=== PATIENT | female | born 1965 | race Two or more races ===

== ENCOUNTER 2025-05-17 11:54 | Inpatient (IN) | payer OTHER ==
[~2025-05-17] VITALS: Ht 165.1 cm; Wt 132.6 kg
--- NOTE | 2025-05-17 12:31 | ED.PDOC ---
Musculoskeletal HPI Comments HPI: 59 year old female presents to the emergency department with a chief complaint of RT leg pain onset 1 week. Patient states she was walking, hit RT leg on a metal pole, since then has been experiencing bruising and pain to RT leg. For the past few days, patient noticed slight improvement of bruising, erythema and swelling is worsening. RT leg is tender to touch, warm to touch, has a abrasion from impact. Denies head injury, LOC, nausea, vomiting, diarrhea, chest pain, shortness of breath, dizziness, headache, numbness/tingling. No other symptoms or modifying factors present at this time. Initial Vitals BP: 174/82 HR: 79 RR: 18 O2 Sat: 98% Temp: 98.1 F Past Medical history: thyroid disease, HTN Past Surgical history: Denies Medications: Denies Social History: Denies smoking, ETOH, and drug use. Allergies: NKDA heavenly: RLE pain swelling red. injury HPI: Poor Historian. REVIEW OF SYSTEMS: CONSTITUTIONAL: Denies acute: fever, diaphoresis, chills, generalized weakness. HEAD: Denies acute: headache, photophobia Eyes: Denies acute: Double vision, vision loss, eye pain, eye discharge. EARS: Denies acute: tinnitus, hearing loss, ear discharge, ear pain, THROAT: Denies acute: sore throat, swelling, difficulty swallowing , pain with swallowing, change in voice. NECK: Denies acute: neck pain, neck swelling, stiff neck. HEART: Denies acute : chest pain, palpitations, LUNGS: Denies acute: SOB, wheezing, cough, hemoptysis ABDOMEN: Denies acute: abdominal pain, Nausea, Vomiting, diarrhea, melena , hematemesis, hematochezia SKIN: Denies acute: itchiness. EXTREMITIES: Denies acute: calf pain, numbness, tingling, weakness, Denies acute: Low back pain. Neuro: Denies acute: focal neurological deficit, motor or sensory focal neurological deficit, tremors, seizure like activity, confusion, dizziness, change in mental status, loss of bowel or bladder function, cauda equina like symptoms. : Denies acute: dysuria, hematuria, flank pain, increase in urinary frequency. PSYCH: Denies acute: hallucination, suicidal ideation, homicidal ideation. FEMALE: Denies acute: abnormal vaginal bleeding, foul odor, unusual discharge. PHYSICAL EXAM: General: -----moderate---acute distress, awake and alert. Head: normocephalic, atraumatic. Neck: supple, trachea is midline, no swelling. Throat: Normal phonation. Eyes:, no erythema, no purulent discharge, no proptosis, no icterus. Heart: regular rate, regular rhythm, no significant murmur appreciated. Lungs: no apparent respiratory distress, Able to speak in full sentences. No wheezing, no rhonchi, no crackles. No stridors Clear to auscultation bilaterally. Abdomen: non tender to palpation, non distended, soft, no guarding, no rebound, + bowel sounds. Obese Neuro: Awake, Alert, oriented to name, self, situation, follows commands GCS=15. Speech is normal. Skin: no petechia, no purpura, no cyanosis, non-pale, not jaundice. Evaluation of the right lower extremity the affected area of complaint: Noted right anterior fountain erythema and tenderness to palpation with edema as w ell. Noted central official wound from the injury. Patient is neurovascularly intact in the affected extremity. Pedal pulses palpable. Sensory and motor are present. No calf tenderness to palpation. No apparent deformity. Makes eye contact. moves all four extremities. Face: no apparent facial droop. Ambulating in the ED independently. Pedal pulses are palpable. ED COURSE: DISCLAIMER: This medical document was created using an electronic medical record system with voice recognition software and computerized dictation system. Although this document has been carefully reviewed, there might still be some phonetic and typographical errors. Occasional wrong-word or "sound-alike" substitutions may have occurred due to the inherent limitations of voice recognition software. These areas are purely typographical due to imperfections of the software programs and do not reflect any compromise in the patient's medical care. Please read the chart carefully and recognize, using context, where these substitutions have occurred. Chief Complaint: Lower Extremity Time Seen by MD: 12:20 Reviewed Notes: Medications, Allergies Allergies: Coded Allergies: Vancomycin (Verified Allergy, Intermediate, 05/20/25) Urticaria, hives, erythema Home Meds Reported Medications Levothyroxine Sodium (Levothyroxine Sodium) 125 Mcg Tab, 1 TAB PO DAILY 05/17/25 Information Source: Patient Mode of Arrival: Ambulatory Location: Right Extremity Location: Leg Timing: Weeks Prehospital treatment: None Severity: Moderate Able to Move Extremity: Yes Bear Weight: Limited Pain: Moderate Mechanism: Blunt Trauma Circumstances: Spontaneous Onset of Symptoms: After Trauma Symptoms: Swelling, Pain, Erythema, Warmth DVT Risk Factors: NONE Associated signs and symptoms: Swelling, Leg pain Past Medical History PAST MEDICAL HISTORY: HTN, Thyroid Surgical History: Denies all surgeries 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 Was a procedure done?: No Differential Diagnosis EXT Differential Diagnosis: Cellulitis, CHF, Deep Vein Thrombosis, Compartment Syndrome, Fracture, Sprain, Dislocation, Laceration, Gout, DJD, Myocardial Infarction, Contusion, Strain, Rheumatoid, Septic, Neurovascular injury, Arthritis, Other (Leg swellingDdx include but not limited to DVT, ischemic limb, pitting edema, volume overload, CHF, cellulitis, hematoma, compartment syndrome, dependent edema, venous stasis.) X-Ray, Labs, Meds, VS Vital Signs Date Time Temp Pulse Resp B/P (MAP) Pulse Ox O2 Delivery O2 Flow Rate FiO2 05/17/25 14:24 98.2 66 16 156/94 (114) 99 98.2 05/17/25 12:00 98.1 79 18 174/82 98 98.1 Lab Test 05/17/25 13:07 Range/Units White Blood Count 6.9 4.4-10.8 10^3/uL Red Blood Count 4.62 4.0-5.20 10^6/uL Hemoglobin 14.5 12.2-16.2 g/dL Hematocrit 41.3 36.0-46.0 % Mean Corpuscular Volume 89.4 80.0-100.0 fL Mean Corpuscular Hemoglobin 31.3 28.0-32.0 pg Mean Corpuscular Hemoglobin Concent 35.0 32.0-36.0 g/dL Red Cell Distribution Width 15.1 H 11.8-14.3 % Platelet Count 168 140-450 10^3/uL Mean Platelet Volume 8.3 6.9-10.8 fL Neutrophils (%) (Auto) 58.0 37.0-80.0 % Lymphocytes (%) (Auto) 26.7 10.0-50.0 % Monocytes (%) (Auto) 10.9 0.0-12.0 % Eosinophils (%) (Auto) 3.4 0.0-7.0 % Basophils (%) (Auto) 1.0 0.0-2.0 % Neutrophils # (Auto) 4.0 1.6-8.6 10 ^3/uL Lymphocytes # (Auto) 1.8 0.4-5.4 10 ^3/uL Monocytes # (Auto) 0.8 0-1.3 10 ^3/uL Eosinophils # (Auto) 0.2 0-0.8 10 ^3/uL Basophils # (Auto) 0.1 0-0.2 10 ^3/uL Nucleated Red Blood Cells 0.1 % Erythrocyte Sedimentation Rate 19 0-20 mm/hr Sodium Level 142 136-145 mmol/L Potassium Level 3.9 3.5-5.1 mmol/L Chloride Level 107 98-107 mmol/L Carbon Dioxide Level 24 20-31 mmol/L Anion Gap 11 5-15 Blood Urea Nitrogen 12 9-23 mg/dL Creatinine 0.68 0.550-1.02 mg/dL Glomerular Filtration Rate Calc 100 >90 mL/min BUN/Creatinine Ratio 17.6 10.0-20.0 Serum Glucose 102 74-106 mg/dL Lactic Acid Level 1.1 0.4-2.0 mmol/L Calcium Level 8.9 8.7-10.4 mg/dL Total Bilirubin 1.3 H 0.2-1.0 mg/dL Aspartate Amino Transferase (AST) 48 H 13-40 U/L Alanine Aminotransferase (ALT) 43 H 7-40 U/L Alkaline Phosphatase 85 46-116 U/L C-Reactive Protein High Sensitivity 1.06 H <1.0 mg/dL B-Type Natriuretic Peptide 37.57 0-100 pg/mL Total Protein 7.0 5.7-8.2 g/dL Albumin 4.0 3.2-4.8 g/dL [place] [id number] Ph: [phone] DIAGNOSTIC IMAGING Diagnostic Imaging Report : [id number] Signed PATIENT: TIMI GRAVEST: [id number] UNIT: [id number] : 1965 LOC: ER ROOM / BED: / AGE / SEX: 59 / F ADM STATUS: REG ER SERVICE [id number] ORDERING PHYSICIAN: XENA NEWMAN DO PROCEDURE(s): RLDVT - RT Lower DVT REASON: pain swelling ORDER NUMBER(s): [id number], ACCESSION NUMBER(s): [id number] Clinical History: pain swelling Comparison: None Technique: Duplex Doppler evaluation of the deep venous system of the right lower extremity from the common femoral vein to the popliteal vein including color Doppler and spectral/pulsed waveform analysis was performed. Findings: The common femoral vein demonstrates appropriate compressibility and waveform variability. There is compressibility/patency of the great saphenous vein at the proximal thigh. The femoral vein demonstrates appropriate compressibility and waveform variability. The deep femoral vein demonstrates appropriate compressibility and waveform variability. The popliteal vein demonstrates appropriate compressibility and waveform variability. There is normal compressibility at the tibioperoneal trunk. Complex fluid collection in the soft tissues of the right lower extremity calf measuring 6.0 x 1.6 x 4.8 cm. Impression: No rightdeep venous thrombosis. Complex fluid collection in the soft tissues of the right lower extremity calf measuring 6.0 x 1.6 x 4.8 cm. ATED BY: MUSHTAQ SAM MD DICTATED DATE/TIME: 05/17/251405 SIGNED BY: MUSHTAQ SAM MD SIGNED DATE/TIME: 05/17/251405 CC: [address] [id number] Ph: [phone] DIAGNOSTIC IMAGING Diagnostic Imaging Report : [id number] Signed PATIENT: TIMI GRAVEST: [id number] UNIT: [id number] : 1965 LOC: ER ROOM / BED: / AGE / SEX: 59 / F ADM STATUS: REG ER SERVICE [id number] ORDERING PHYSICIAN: XENA NEWMAN DO PROCEDURE(s): RTLEXW - RT LOWER EXTREMITY W CON REASON: PAIN SWELLING ORDER NUMBER(s): [id number], ACCESSION NUMBER(s): [id number] EXAM: CT RT LOWER EXTREMITY W CON INDICATION: PAIN SWELLING EXAM DATE: 05/17/2025 04:10 PM COMPARISON: None TECHNIQUE: Multiple axial CT images of the right distal lower extremity were obtained using bone algorithm. Axial and coronal reformatting was done. Bone and soft tissue windows were reviewed. IV contrast was administered. Radiation Dose Information: CT Dose: CTDI volume is 7.75 mGy. Dose-length product is 436.71 mGy*cm Findings/Impression: There is no evidence of an acute fracture, dislocation, blastic, or lytic lesions. No radiopaque foreign bodies. Ill-defined anteromedial subcutaneous enhancing fluid collection at the level of the mid-tibia, which measures approximately 10.6 x 7.8 x 1.8 cm. May reflect of phlegmon versus developing abscess. Contrast-enhanced MRI May prove useful for further evaluation. Mild diffuse soft tissue edema. ATED BY: ADRIENNE LEW DO DICTATED DATE/TIME: 05/17/251703 SIGNED BY: ADRIENNE LEW DO SIGNED DATE/TIME: 05/17/251703 CC: Time of 1ST Reevaluation: 12:50 Reevaluation 1ST: Unchanged Patient Education/Counseling: Diagnosis, Treatment Family Education/Counseling: No Family Present Comments MDM: patient presented with the above HPI.---leg pain/injury---workup was init iated. patient was found with the above mentioned diagnosis. the following medications were ordered: please refer to order lists of meds and tests obtained by myself Dr. Newman. Patient ED course and VS have been stabilized. Patient has been reassessed in the ED and remained in a stable condition. Pertinent incidental findings were discussed with the patient and/or family. Patient/family voices understanding and is agreeable with plan. Patient has been observed in the ED adequate length of time to insure improvement/stability. Escalation of care considered: Consideration of escalation to observation or admission Patient was ADMITTED to the medicine team for further evaluation and treatment of their presentation. All the reports of any imaging studies that were ordered by myself were reviewed by myself. Departure 1 Departure Time of Disposition: 17:20 Impression: Primary Impression: Cellulitis of leg, right Additional Impression: Hematoma Disposition: ADMITTED INPATIENT Admit to: Tele Condition: Guarded Discharged With: Self Critical Care Note Critical Care Time?: No I personally scribed for XENA NEWMAN DO ([email or web address]) on 05/17/25 at 12:31. Electronically submitted by Virginia Morin ([email or web address]). I personally scribed for XENA NEWMAN DO ([email or web address]) on 05/17/25 at 14:37. Electronically submitted by Virginia Morin ([email or web address]). I personally scribed for XENA NEWMAN DO ([email or web address]) on 05/17/25 at 17:09. Electronically submitted by Virginia Morin ([email or web address]). XENA NEWMAN DO May 17, 2025 12:31
[2025-05-17 13:23] LABS: Hematocrit 41.3 % (36.0-46.0); Hemoglobin 14.5 g/dL (12.2-16.2); Mean Corpuscular Hemoglobin 31.3 pg (28.0-32.0); Mean Corpuscular Volume 89.4 fL (80.0-100.0); Nucleated Red Blood Cells % 0.1 %
[2025-05-17 13:35] LABS: Albumin 4.0 g/dL (3.2-4.8); Alkaline Phosphatase 85 U/L (46-116); Anion Gap 11 (5-15); BUN/Creatinine Ratio 17.6 (10.0-20.0); Blood Urea Nitrogen 12 mg/dL (9-23); Calcium 8.9 mg/dL (8.7-10.4); Carbon Dioxide 24 mmol/L (20-31); Chloride 107 mmol/L (98-107); Glucose 102 mg/dL (74-106); Potassium 3.9 mmol/L (3.5-5.1); Sodium 142 mmol/L (136-145); Total Protein 7.0 g/dL (5.7-8.2)
[2025-05-17 13:38] LABS: Alanine Aminotransferase 43 U/L (7-40); Bilirubin, Total 1.3 mg/dL (0.2-1.0)
--- NOTE | 2025-05-17 14:08 | DVH ---
Clinical History: pain swelling Comparison: None Technique: Duplex Doppler evaluation of the deep venous system of the right lower extremity from the common femo ral vein to the popliteal vein including color Doppler and spectral/pulsed waveform analysis was perf ormed. Findings: The common femoral vein demonstrates appropriate compressibility and waveform variability. There is compressibility/patency of the great saphenous vein at the proximal thigh. The femoral vein demonstrates appropriate compressibility and waveform variability. The deep femoral vein demonstrates appropriate compressibility and waveform variability. The popliteal vein demonstrates appropriate compressibility and waveform variability. There is normal compressibility at the tibioperoneal trunk. Complex fluid collection in the soft tissues of the right lower extremity calf measuring 6.0 x 1.6 x 4.8 cm. Impression: No rightdeep venous thrombosis. Complex fluid collection in the soft tissues of the right lower extremity calf measuring 6.0 x 1.6 x 4.8 cm.
[2025-05-17] MEDS: IOHEXOL 300 MG/ML 100ML BOTTLE IJ ONE (16:23)
--- NOTE | 2025-05-17 17:06 | DVH ---
EXAM: CT RT LOWER EXTREMITY W CON INDICATION: PAIN SWELLING EXAM DATE: 05/17/2025 04:10 PM COMPARISON: None TECHNIQUE: Multiple axial CT images of the right distal lower extremity were obtained using bone [employer]. Axial and coronal reformatting was done. Bone and soft tissue windows were reviewed. IV contrast was administered. Radiation Dose Information: CT Dose: CTDI volume is 7.75 mGy. Dose-length product is 436.71 mGy*cm Findings/Impression: There is no evidence of an acute fracture, dislocation, blastic, or lytic lesions. No radiopaque foreign bodies. Ill-defined anteromedial subcutaneous enhancing fluid collection at the level of the mid-tibia, which measures approximately 10.6 x 7.8 x 1.8 cm. May reflect of phlegmon versus developing abscess. Contr ast-enhanced MRI May prove useful for further evaluation. Mild diffuse soft tissue edema.
[2025-05-17] MEDS ORDERED: LEVO125T7 PO (19:25)
--- NOTE | 2025-05-17 19:25 | DVHHP2 ---
Admitting Diagnosis: Right leg pain History of Present Illness 59 y/o female patient with history of hypertension presents with right leg pain. Patient states she hit her leg on a sign post. Patient also complains of bruising, redness, and swelling to the leg. While in the emergency department the patient was evaluated by the provider, As per provider: Labs, vital signs, and imagining monitored. Patient will be admitted for further evaluation and treatment. I discussed admission with the patient/family and is in agreement to treatment plan. Allergies: Coded Allergies: NO KNOWN ALLERGIES (Unverified , 05/17/25) Home Meds Reported Medications Levothyroxine Sodium (Levothyroxine Sodium) 125 Mcg Tab, 1 TAB PO DAILY 05/17/25 Current Medications Current Medications Medications (Trade) Dose Ordered Sig/Roseanna Route PRN Reason Start Time Stop Time Status Last Admin Enoxaparin Sodium (Lovenox) 40 mg DAILY SC 05/18/25 10:00 05/18/25 09:43 Piperacillin Sod/ Tazobactam Sod 100 ml @ 25 mls/hr Q8HR IV 05/18/25 06:00 05/18/25 15:58 Hydralazine HCl (Apresoline Injection) 10 mg Q6HP PRN IV SBP>150 05/18/25 13:15 Review of Systems Constitutional: denies chills, denies fever, denies malaise Eyes: denies eye pain, denies vision change ENT: denies ear pain, denies headache, denies nasal congestion, denies painful swallowing, denies voice change Cardiovascular: denies chest pain, denies edema, denies orthopnea, denies palpitations, denies paroxysmal nocturnal dyspnea Respiratory: denies cough, denies shortness of breath Gastrointestinal: denies constipation, denies diarrhea, denies nausea, denies vomiting Genitourinary: denies dysuria, denies frequent urination, denies urethral discharge Musculoskeletal: denies back pain, denies joint pain, denies muscle pain Skin: denies bruising, denies itching, denies rash Neurological: denies focal weakness, denies headache, denies sensory changes Psychiatric: denies anxiety, denies depression Endocrine: denies polydipsia, denies polyuria Hematologic/Lymphatic: denies easy bleeding, denies easy bruising, denies enlarged lymph nodes Allergic/Immunologic: denies allergy, denies hives Vital Signs Vital Signs Date Time Temp Pulse Resp B/P (MAP) Pulse Ox O2 Delivery O2 Flow Rate FiO2 05/18/25 17:01 98.1 68 17 151/86 (107) 95 98.1 05/18/25 08:00 Room Air* 0 21 Physical Exam General Appearance: alert, no distress HEENT: EOMI, PERRLA, normal external inspect of ears, no icterus, no nasal drainage Neck: no carotid bruit, no jugular venous distention (JVD), no lymphadenopathy Chest: normal thorax Respiratory: clear to auscultation, normal air movement Cardiovascular: regular rate and rhythm, no diastolic murmur, no jugular venous distention (JVD), no rub, no systolic murmur Abdominal: soft, no hepatomegaly, no mass, no splenomegaly, no tenderness Genitourinary: grossly normal external Musculoskeletal: no joint tenderness, no swelling Extremities: normal pulses, no calf tenderness, no clubbing, no cyanosis, no edema Skin: no bruising, no jaundice, no rash Neurological: alert, No focal deficit SEPSIS Sepsis Screen Date sepsis recognized/suspect: May 17, 2025 Time Sepsis recognized/suspect: 1203 Recent Procedure: No On Antibiotic Therapy: No Respiratory Rate >20: No Heart Rate >90: No Temp<36 C (96.8 F) or >38.3 C: No SBP <90 or MAP <65 mmHG: No New Acute Mental Status Change: No Is the patient on CPAP, BIPAP,: No Physician Orders Rt Lower Dvt (05/17/25 12:22) Rt Lower Extremity W Con (05/17/25 14:59) Admit (05/17/25 19:22) Code Status (05/17/25 19:22) Hydrocodone-Acet 5/325mg Tab ([place] 5/32 (05/17/25 19:30) Temazepam (Restoril) (05/17/25 19:30) Ondansetron Hcl (Zofran) (05/17/25 19:30) Docusate Sodium Capsule (Colace Capsule) (05/17/25 19:30) Enoxaparin Sodium (Lovenox) (05/18/25 10:00) Cardiac Diet-2gna,Lofat,Lochol (05/18/25 Breakfast) Acetaminophen Tablet (Tylenol Tablet) (05/17/25 19:30) Piperacillin-Tazob 3.375gm (Zosyn 3.375g (05/18/25 06:00) * Radiologist Consult (05/18/25 13:09) Hydralazine Injection (Apresoline Inject (05/18/25 13:15) Vital Signs Date Time Temp Pulse Resp B/P (MAP) Pulse Ox O2 Delivery O2 Flow Rate FiO2 05/18/25 17:01 98.1 68 17 151/86 (107) 95 98.1 05/18/25 12:52 97.9 63 17 145/90 (108) 97 97.9 05/18/25 08:40 98.1 64 17 135/83 (100) 96 98.1 05/18/25 08:00 Room Air* 0 21 05/18/25 05:00 97.7 70 18 122/70 (87) 98 97.7 05/18/25 01:00 98.2 61 18 125/73 (90) 98 98.2 05/17/25 23:14 Room Air* 0 21 05/17/25 21:11 97.6 74 18 127/76 (93) 96 97.6 05/17/25 21:07 99 Room Air* 0 21 05/17/25 19:29 98.2 66 14 159/73 (101) 95 98.2 05/17/25 14:24 98.2 66 16 156/94 (114) 99 98.2 05/17/25 12:00 98.1 79 18 174/82 98 98.1 Laboratory Tests Test 05/17/25 13:07 05/18/25 04:17 Lactic Acid Level 1.1 mmol/L (0.4-2.0) White Blood Count 6.9 10^3/uL (4.4-10.8) 6.2 10^3/uL (4.4-10.8) Medications Medications Dose Ordered Sig/Roseanna Route Start Time Stop Time Status Last Admin Dose Admin Enoxaparin Sodium 40 mg DAILY SC 05/18/25 10:00 05/18/25 09:43 40 MG Results Labs Test 05/18/25 13:40 05/18/25 04:17 05/17/25 13:07 Range/Units Prothrombin Time 12.8 H 9.3-11.8 sec Prothrombin Time INR 1.23 H 0.9-1.15 Activated Partial Thromboplast Time 29.3 24.5-34.5 SEC White Blood Count 6.2 4.4-10.8 10^3/uL Red Blood Count 4.25 4.0-5.20 10^6/uL Hemoglobin 13.2 12.2-16.2 g/dL Hematocrit 38.5 36.0-46.0 % Mean Corpuscular Volume 90.6 80.0-100.0 fL Mean Corpuscular Hemoglobin 31.2 28.0-32.0 pg Mean Corpuscular Hemoglobin Concent 34.4 32.0-36.0 g/dL Red Cell Distribution Width 14.7 H 11.8-14.3 % Platelet Count 154 140-450 10^3/uL Mean Platelet Volume 8.6 6.9-10.8 fL Neutrophils (%) (Auto) 61.1 37.0-80.0 % Lymphocytes (%) (Auto) 24.4 10.0-50.0 % Monocytes (%) (Auto) 10.2 0.0-12.0 % Eosinophils (%) (Auto) 3.8 0.0-7.0 % Basophils (%) (Auto) 0.5 0.0-2.0 % Neutrophils # (Auto) 3.8 1.6-8.6 10 ^3/uL Lymphocytes # (Auto) 1.5 0.4-5.4 10 ^3/uL Monocytes # (Auto) 0.6 0-1.3 10 ^3/uL Eosinophils # (Auto) 0.2 0-0.8 10 ^3/uL Basophils # (Auto) 0 0-0.2 10 ^3/uL Nucleated Red Blood Cells 0.0 % Sodium Level 143 136-145 mmol/L Potassium Level 3.5 3.5-5.1 mmol/L Chloride Level 105 98-107 mmol/L Carbon Dioxide Level 27 20-31 mmol/L Anion Gap 11 5-15 Blood Urea Nitrogen 11 9-23 mg/dL Creatinine 0.71 0.550-1.02 mg/dL Glomerular Filtration Rate Calc 98 >90 mL/min BUN/Creatinine Ratio 15.5 10.0-20.0 Serum Glucose 141 H 74-106 mg/dL Calcium Level 8.6 L 8.7-10.4 mg/dL Total Bilirubin 0.9 0.2-1.0 mg/dL Aspartate Amino Transferase (AST) 42 H 13-40 U/L Alanine Aminotransferase (ALT) 37 7-40 U/L Alkaline Phosphatase 96 46-116 U/L Total Protein 6.7 5.7-8.2 g/dL Albumin 3.7 3.2-4.8 g/dL Erythrocyte Sedimentation Rate 19 0-20 mm/hr Lactic Acid Level 1.1 0.4-2.0 mmol/L C-Reactive Protein High Sensitivity 1.06 H <1.0 mg/dL B-Type Natriuretic Peptide 37.57 0-100 pg/mL Plan 1. Right leg pain Monitor 2. Morbid obesity Monitor 3. Benign essential hypertension Monitor, PRN antihypertensives 4. Hypothyroid Monitor, daily labs 5. Cellulitis right lower extremity Monitor, IV abx, IR consult Plan discussed with: Patient, Other YAAKOV ABEL NP May 17, 2025 19:25
[2025-05-17] MEDS ORDERED: ACETAMINOPHEN 325 MG TAB PO PRN (19:30)
[2025-05-17] MEDS ORDERED: ONDANSETRON HCL 4 MG/2 ML VIAL IV PRN (19:30)
[2025-05-17 21:07] VITALS: O2SAT 99
[2025-05-17 21:11] VITALS: BP 127/76; PULSE 74; RESP 18; TEMP 97.6; O2SAT 96
[2025-05-17] MEDS: PIPERACILLIN-TAZOB 3.375GM 100 ML IV ONE (21:39)
[2025-05-18] VITALS (8 sets, daily range): BP systolic 122–151; BP diastolic 70–90; PULSE 61–70; RESP 17–18; TEMP 97.6–98.2; O2SAT 95–98
[2025-05-18] MEDS: PIPERACILLIN-TAZOB 3.375GM 100 ML IV SCH (05:41)
[2025-05-18 05:53] LABS: Hematocrit 38.5 % (36.0-46.0); Hemoglobin 13.2 g/dL (12.2-16.2); Mean Corpuscular Hemoglobin 31.2 pg (28.0-32.0); Mean Corpuscular Volume 90.6 fL (80.0-100.0); Nucleated Red Blood Cells % 0.0 %
[2025-05-18 06:10] LABS: Alanine Aminotransferase 37 U/L (7-40); Albumin 3.7 g/dL (3.2-4.8); Alkaline Phosphatase 96 U/L (46-116); Anion Gap 11 (5-15); BUN/Creatinine Ratio 15.5 (10.0-20.0); Bilirubin, Total 0.9 mg/dL (0.2-1.0); Blood Urea Nitrogen 11 mg/dL (9-23); Carbon Dioxide 27 mmol/L (20-31); Chloride 105 mmol/L (98-107); Sodium 143 mmol/L (136-145); Total Protein 6.7 g/dL (5.7-8.2)
[2025-05-18 06:23] LABS: Calcium 8.6 mg/dL (8.7-10.4); Glucose 141 mg/dL (74-106); Potassium 3.5 mmol/L (3.5-5.1)
[2025-05-18] MEDS: ENOXAPARIN SOD 40 MG/0.4 ML SYRINGE SC SCH (09:43)
[2025-05-18] MEDS ORDERED: hydrALAZINE HCL 20 MG/ML VL IV PRN (13:15)
[2025-05-18 14:13] LABS: INR 1.23 (0.9-1.15); Partial Thromboplastin Time 29.3 SEC (24.5-34.5); Prothrombin Time 12.8 sec (9.3-11.8)
--- NOTE | 2025-05-18 20:16 | DVHPN2 ---
Progress Note - Dictate Date Seen: May 18, 2025 Medical Necessity Reason Pt with a Central, PICC or Fol: No vital signs Vital Sign Date Time Temp Pulse Resp B/P (MAP) Pulse Ox O2 Delivery O2 Flow Rate FiO2 05/18/25 17:01 98.1 68 17 151/86 (107) 95 98.1 05/18/25 08:00 Room Air* 0 21 Total Intake and Output 05/17/25 05/17/25 05/18/25 15:00 23:00 07:00 Intake Total 100 ml Balance 100 ml medications Current Medications Medications Dose Ordered Sig/Roseanna Route Start Time Stop Time Status Last Admin Dose Admin Acetaminophen/ Hydrocodone Bitart 1 tab Q4HP PRN PO 05/17/25 19:30 Temazepam 15 mg QHSP PRN PO 05/17/25 19:30 Ondansetron HCl 4 mg Q4HP PRN IV 05/17/25 19:30 Docusate Sodium 100 mg BIDPRN PRN PO 05/17/25 19:30 Enoxaparin Sodium 40 mg DAILY SC 05/18/25 10:00 05/18/25 09:43 40 MG Acetaminophen 650 mg Q6HP PRN PO 05/17/25 19:30 Piperacillin Sod/ Tazobactam Sod 100 ml @ 25 mls/hr Q8HR IV 05/18/25 06:00 05/18/25 15:58 25 MLS/HR Hydralazine HCl 10 mg Q6HP PRN IV 05/18/25 13:15 objective General Appearance: alert, no distress HEENT: EOMI, PERRLA, normal external inspect of ears, no icterus, no nasal drainage Neck: no carotid bruit, no jugular venous distention (JVD), no lymphadenopathy Chest: normal thorax Respiratory: clear to auscultation, normal air movement Cardiovascular: regular rate and rhythm, no diastolic murmur, no jugular venous distention (JVD), no rub, no systolic murmur Abdominal: soft, no hepatomegaly, no mass, no splenomegaly, no tenderness Genitourinary: grossly normal external Musculoskeletal: no joint tenderness, no swelling Extremities: normal pulses, no calf tenderness, no clubbing, no cyanosis, no edema Skin: no bruising, no jaundice, no rash Neurological: alert, No focal deficit laboratory and microbiology Laboratory Tests 05/18/25 04:17 Test 05/18/25 04:17 Range/Units Serum Glucose 141 H 74-106 mg/dL Problem List 1. Right leg pain Monitor 2. Morbid obesity Monitor 3. Benign essential hypertension Monitor, PRN antihypertensives 4. Hypothyroid Monitor, daily labs 5. Cellulitis right lower extremity Monitor, IV abx, IR consult Assessment/Plan Subjective: Patient is awake and alert. Objective: Patient was admitted for cellulitis to her right lower extremity. CT imaging shows fluid collection, could be abscess. Patient states that she hit her leg on a sign post. Patient has a history of morbid obesity and essential hypertension and hypothyroidism. Plan: Continue antibiotics for cellulitis. Continue antihypertensives as needed. IR consult for possible fluid drainage. Plan discussed with: Patient, Other YAAKOV ABEL NP May 18, 2025 20:16
[2025-05-18] MEDS: TEMAZEPAM 15 MG CAP PO PRN (21:48)
[2025-05-19] VITALS (7 sets, daily range): BP systolic 109–154; BP diastolic 52–87; PULSE 60–68; RESP 16–18; TEMP 97.2–98.4; O2SAT 92–97
[2025-05-19] MEDS: POTASSIUM CHL 20 Meq TABLET PO ONE (10:46)
[2025-05-19] MEDS: FUROSEMIDE 40 MG/4 ML VIAL IV ONE (10:47)
[2025-05-19] MEDS: HYDROcodone-ACET 5/325MG TAB PO PRN (15:00)
--- NOTE | 2025-05-19 18:13 | DVHPN2 ---
Progress Note Date Seen: May 19, 2025 Medical Necessity Reason Pt with a Central, PICC or Fol: No Subjective Review of Systems: CVS:Normal, RESPIRATORY:Normal, GI:Normal, NEURO:Normal Objective vital signs Vital Sign Date Time Temp Pulse Resp B/P (MAP) Pulse Ox O2 Delivery O2 Flow Rate FiO2 05/19/25 16:50 97.5 68 17 154/87 (109) 92 97.5 05/19/25 07:52 Room Air* 0 21 Total Intake and Output 05/18/25 05/18/25 05/19/25 15:00 23:00 07:00 Intake Total 100 ml 425 ml 920 ml Balance 100 ml 425 ml 920 ml medications Current Medications Medications Dose Ordered Sig/Roseanna Route Start Time Stop Time Status Last Admin Dose Admin Acetaminophen/ Hydrocodone Bitart 1 tab Q4HP PRN PO 05/17/25 19:30 05/19/25 15:00 1 TAB Temazepam 15 mg QHSP PRN PO 05/17/25 19:30 05/18/25 21:48 15 MG Ondansetron HCl 4 mg Q4HP PRN IV 05/17/25 19:30 Docusate Sodium 100 mg BIDPRN PRN PO 05/17/25 19:30 Enoxaparin Sodium 40 mg DAILY SC 05/18/25 10:00 05/19/25 10:05 40 MG Acetaminophen 650 mg Q6HP PRN PO 05/17/25 19:30 Piperacillin Sod/ Tazobactam Sod 100 ml @ 25 mls/hr Q8HR IV 05/18/25 06:00 05/19/25 14:10 25 MLS/HR Hydralazine HCl 10 mg Q6HP PRN IV 05/18/25 13:15 Patient Own Medication 1 tab DAILY PO 05/20/25 10:00 UNV Examination: GENERAL:Normal, NECK:Normal, LUNGS:Normal, CVS:Normal, ABDOMEN:Normal, SKIN:Normal, NEURO:Normal laboratory and microbiology Laboratory Tests 05/18/25 04:17 Test 05/18/25 04:17 Range/Units Serum Glucose 141 H 74-106 mg/dL Problem List/Assessment/Plan Problem List/Assessment/Plan The patient reports that she hit her leg on a signpost, which appears to be the precipitating event for her current condition. She states that the color of her affected leg is improving during her hospitalization. The patient was given Lasix for swelling today and reports she is continuing her home medication for hypothyroidism. Right Lower Extremity Cellulitis Assessment: Patient admitted with cellulitis to right lower extremity. CT scan of right lower extremity shows ill-defined anteromedial subcutaneous enhancing fluid collection at the level of mid tibia measuring approximately 10.6 x 7.8 x 1 cm, which may reflect phlegmon versus developing abscess. Patient reports trauma history of hitting her leg on a signpost. Patient states that color is improving. Plan: - Continue Ibezosin - IR (interventional radiology) consulted for possible drainage - Given 40 mg Lasix for swelling - Monitor swelling and redness improvement - Possible discharge tomorrow if swelling and redness improves - Discharge home on antibiotics Hypothyroidism Assessment: Patient has hypothyroidism requiring ongoing management. Plan: - Continue home medication - Monitor daily labs Essential Hypertension Assessment: Patient has essential hypertension requiring monitoring. Plan: - Continue to monitor blood pressure Morbid Obesity Assessment: Patient has morbid obesity requiring monitoring. Plan: - Monitor Plan discussed with: Patient My Orders My Orders Orders - KASSIDY CHIRINOS Procedure Category Date Status Time (Nf) Levothyroxine PHA 05/20/25 Logged Sodium 10:00 Date of Service: May 19, 2025 Billing Provider: NATALYA ALY MD Common Visit Codes: [id number] INP/OBS CARE(MOD) KASSIDY CHIRINOS May 19, 2025 18:13
[2025-05-19 19:41] LABS: Hematocrit 43.6 % (36.0-46.0); Hemoglobin 15.0 g/dL (12.2-16.2); Mean Corpuscular Hemoglobin 30.9 pg (28.0-32.0); Mean Corpuscular Volume 89.6 fL (80.0-100.0); Nucleated Red Blood Cells % 0.0 %
[2025-05-19 19:51] LABS: Chloride 103 mmol/L (98-107); Potassium 4.0 mmol/L (3.5-5.1); Sodium 139 mmol/L (136-145)
[2025-05-19 19:52] LABS: Anion Gap 11 (5-15); Calcium 9.4 mg/dL (8.7-10.4); Carbon Dioxide 25 mmol/L (20-31)
[2025-05-19 19:57] LABS: BUN/Creatinine Ratio 12.8 (10.0-20.0); Blood Urea Nitrogen 10 mg/dL (9-23); Glucose 151 mg/dL (74-106)
[2025-05-20 01:00] VITALS: BP 116/60; PULSE 56; RESP 19; TEMP 97.1; O2SAT 92
[2025-05-20] MEDS ORDERED: PIPERACILLIN-TAZOB 3.375GM 100 ML IV SCH (03:00)
[2025-05-20 05:00] VITALS: BP 118/62; PULSE 61; RESP 18; TEMP 97.2; O2SAT 94
[2025-05-20] MEDS: LEVOTHYROXINE SODIUM 50 MCG TAB PO SCH (05:15)
[2025-05-20] MEDS: FUROSEMIDE 40 MG/4 ML VIAL IV ONE (07:21)
[2025-05-20] MEDS: DOCUSATE SOD 100 MG CAP PO PRN (08:41)
[2025-05-20 08:49] VITALS: BP 124/76; PULSE 61; RESP 19; TEMP 98.2; O2SAT 94
[2025-05-20] MEDS ORDERED: VANCOMYCIN 1GM/250ML KIT 250 ML IV SCH (10:00)
[2025-05-20] MEDS ORDERED: VANCOMYCIN PER PHARMACY 0 MG IV SCH (10:30)
[2025-05-20] MEDS: VANCOMYCIN 1GM/250ML KIT 250 ML IV SCH (11:06)
[2025-05-20 11:11] LABS: Hematocrit 43.3 % (36.0-46.0); Hemoglobin 14.8 g/dL (12.2-16.2); Mean Corpuscular Hemoglobin 31.0 pg (28.0-32.0); Mean Corpuscular Volume 90.6 fL (80.0-100.0); Nucleated Red Blood Cells % 0.1 %
[2025-05-20 11:20] LABS: Chloride 102 mmol/L (98-107); Potassium 3.9 mmol/L (3.5-5.1); Sodium 140 mmol/L (136-145)
[2025-05-20 11:22] LABS: Anion Gap 8 (5-15); Calcium 9.3 mg/dL (8.7-10.4); Carbon Dioxide 30 mmol/L (20-31)
[2025-05-20 11:27] LABS: BUN/Creatinine Ratio 12.5 (10.0-20.0); Blood Urea Nitrogen 10 mg/dL (9-23); Glucose 81 mg/dL (74-106)
--- NOTE | 2025-05-20 12:58 | DVHPN2 ---
Progress Note Date Seen: May 20, 2025 Medical Necessity Reason Pt with a Central, PICC or Fol: No Subjective Review of Systems: CVS:Normal, RESPIRATORY:Normal, :Normal, NEURO:Normal Objective vital signs Vital Sign Date Time Temp Pulse Resp B/P (MAP) Pulse Ox O2 Delivery O2 Flow Rate FiO2 05/20/25 08:49 98.2 61 19 124/76 (92) 94 98.2 05/20/25 08:00 Room Air* 0 21 Total Intake and Output 05/19/25 05/19/25 05/20/25 15:00 23:00 07:00 Intake Total 650 ml 1600 ml 845 ml Balance 650 ml 1600 ml 845 ml medications Current Medications Medications Dose Ordered Sig/Roseanna Route Start Time Stop Time Status Last Admin Dose Admin Acetaminophen/ Hydrocodone Bitart 1 tab Q4HP PRN PO 05/17/25 19:30 05/20/25 00:06 1 TAB Temazepam 15 mg QHSP PRN PO 05/17/25 19:30 05/19/25 21:58 15 MG Ondansetron HCl 4 mg Q4HP PRN IV 05/17/25 19:30 Docusate Sodium 100 mg BIDPRN PRN PO 05/17/25 19:30 05/20/25 08:41 100 MG Enoxaparin Sodium 40 mg DAILY SC 05/18/25 10:00 05/20/25 08:37 40 MG Acetaminophen 650 mg Q6HP PRN PO 05/17/25 19:30 Piperacillin Sod/ Tazobactam Sod 100 ml @ 25 mls/hr Q8HR IV 05/18/25 06:00 05/20/25 05:14 25 MLS/HR Hydralazine HCl 10 mg Q6HP PRN IV 05/18/25 13:15 Levothyroxine Sodium 125 mcg QAM@0600 PO 05/20/25 06:00 05/20/25 05:15 125 MCG Vancomycin HCl 0 ml @ 0 mls/hr UD IV 05/20/25 10:30 Examination: GENERAL:Normal, LUNGS:Normal, CVS:Normal, ABDOMEN:Normal, SKIN:Normal, NEURO:Normal laboratory and microbiology Laboratory Tests 05/20/25 10:51 Test 05/20/25 10:51 Range/Units Serum Glucose 81 74-106 mg/dL Problem List/Assessment/Plan Problem List/Assessment/Plan Right Lower Extremity Cellulitis Assessment: Patient continues to have some mild redness in the right lower extremity, indicating ongoing cellulitis. Current treatment appears to be partially effective, but not achieving complete resolution. 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 Plan: - Continue levothyroxine Essential Hypertension Assessment: Patient has essential hypertension requiring ongoing management. Plan: - Continue to monitor blood pressure Morbid Obesity Assessment: Patient has morbid obesity requiring ongoing monitoring. Plan: - Continue to monitor Plan discussed with: Patient My Orders My Orders Orders - KASSIDY CHIRINOS Procedure Category Date Status Time Levothyroxine Tablet PHA 05/20/25 In Process (Synthroid Tablet) 06:00 Vancomycin Per PHA 05/20/25 In Process Pharmacy 10:30 Date of Service: May 20, 2025 Billing Provider: NATALYA ALY MD Common Visit Codes: [id number] INP/OBS CARE (MOD) KASSIDY CHIRINOS May 20, 2025 12:58
[2025-05-20 13:14] VITALS: BP 140/80; PULSE 71; RESP 18; TEMP 97.5; O2SAT 95
[2025-05-20 16:00] VITALS: BP 139/72; PULSE 65; RESP 18; TEMP 97.8; O2SAT 97
[2025-05-20] MEDS ORDERED: VANCOMYCIN 1.75GM/350ML 350 ML IV SCH (20:00)
[2025-05-20 21:00] VITALS: BP 120/77; PULSE 71; RESP 14; TEMP 98.5; O2SAT 94
[2025-05-21 01:00] VITALS: BP 119/79; PULSE 65; RESP 13; TEMP 96.8; O2SAT 93
[2025-05-21] MEDS: PIPERACILLIN-TAZOB 3.375GM 100 ML IV SCH (04:03)
[2025-05-21 04:48] VITALS: BP 123/71; PULSE 64; RESP 15; TEMP 97.3; O2SAT 93
[2025-05-21 07:08] LABS: Hematocrit 40.1 % (36.0-46.0); Hemoglobin 13.7 g/dL (12.2-16.2); Mean Corpuscular Hemoglobin 30.9 pg (28.0-32.0); Mean Corpuscular Volume 90.3 fL (80.0-100.0); Nucleated Red Blood Cells % 0.1 %
[2025-05-21 07:10] LABS: Chloride 105 mmol/L (98-107); Potassium 3.6 mmol/L (3.5-5.1); Sodium 139 mmol/L (136-145)
[2025-05-21 07:11] LABS: Anion Gap 9 (5-15); Carbon Dioxide 25 mmol/L (20-31)
[2025-05-21 07:16] LABS: BUN/Creatinine Ratio 11.6 (10.0-20.0); Glucose 99 mg/dL (74-106)
[2025-05-21 07:18] LABS: Blood Urea Nitrogen 8 mg/dL (9-23); Calcium 8.6 mg/dL (8.7-10.4)
[2025-05-21] MEDS: FUROSEMIDE 40 MG/4 ML VIAL IV ONE (07:25)
[2025-05-21 08:49] VITALS: BP 113/70; PULSE 69; RESP 19; TEMP 97.5; O2SAT 95
[2025-05-21] MEDS: LINEZOLID 600MG/300ML 300 ML IV SCH (09:15)
[2025-05-21 13:00] VITALS: BP 150/88; PULSE 68; RESP 17; TEMP 97.6; O2SAT 97
--- NOTE | 2025-05-21 14:18 | DVHPN2 ---
Progress Note Date Seen: May 21, 2025 Medical Necessity Reason Pt with a Central, PICC or Fol: No Subjective Review of Systems: CVS:Normal, RESPIRATORY:Normal, GI:Normal, NEURO:Normal Objective vital signs Vital Sign Date Time Temp Pulse Resp B/P (MAP) Pulse Ox O2 Delivery O2 Flow Rate FiO2 05/21/25 08:49 97.5 69 19 113/70 (84) 95 97.5 05/21/25 08:00 Room Air* 0 21 Total Intake and Output 05/20/25 05/20/25 05/21/25 14:59 22:59 06:59 Intake Total 830 ml 1300 ml 1240 ml Balance 830 ml 1300 ml 1240 ml medications Current Medications Medications Dose Ordered Sig/Roseanna Route Start Time Stop Time Status Last Admin Dose Admin Acetaminophen/ Hydrocodone Bitart 1 tab Q4HP PRN PO 05/17/25 19:30 05/20/25 14:25 1 TAB Temazepam 15 mg QHSP PRN PO 05/17/25 19:30 05/19/25 21:58 15 MG Ondansetron HCl 4 mg Q4HP PRN IV 05/17/25 19:30 Docusate Sodium 100 mg BIDPRN PRN PO 05/17/25 19:30 05/20/25 08:41 100 MG Enoxaparin Sodium 40 mg DAILY SC 05/18/25 10:00 05/21/25 09:15 40 MG Acetaminophen 650 mg Q6HP PRN PO 05/17/25 19:30 Hydralazine HCl 10 mg Q6HP PRN IV 05/18/25 13:15 Levothyroxine Sodium 125 mcg QAM@0600 PO 05/20/25 06:00 05/21/25 05:37 125 MCG Piperacillin Sod/ Tazobactam Sod 100 ml @ 25 mls/hr Q8H IV 05/21/25 03:00 05/21/25 11:00 25 MLS/HR Linezolid 300 ml @ 150 mls/hr Q12HR IV 05/21/25 10:00 05/21/25 09:15 150 MLS/HR Examination: GENERAL:Normal, LUNGS:Normal, CVS:Normal, ABDOMEN:Normal, SKIN:Normal, NEURO:Normal laboratory and microbiology Laboratory Tests 05/21/25 05:13 Test 9/28/25 05:13 Range/Units Serum Glucose 99 74-106 mg/dL Labs and/or images reviewed: Labs reviewed by me, Image(s) reviewed by me Problem List/Assessment/Plan Problem List/Assessment/Plan Talat Etienne presents with right lower extremity cellulitis, hypothyroidism, essential hypertension, and morbid obesity. The patient reports that the redness associated with the right lower extremity cellulitis is subjectively worsening, although objective assessment does not confirm this progression. A nurse has marked to monitor for any worsening of the redness. The patient experienced an allergic reaction to vancomycin, necessitating a change in antibiotic therapy to Zosyn. An IR consult for possible drainage of the right lower extremity will be reordered with Zyvox. The patient's hypothyroidism is being managed with continued levothyroxine treatment, and their essential hypertension is being addressed with ongoing blood pressure medication. Regarding the patient's morbid obesity, discharge is being considered for tomorrow, pending monitoring and assessment. Right Lower Extremity Cellulitis Assessment: Patient reports worsening redness of right lower extremity cellulitis, though clinical assessment does not show apparent worsening. Nursing staff has marked area to monitor for progression of erythema. Patient experienced allergic reaction to vancomycin requiring antibiotic change. Plan: - Change antibiotics from vancomycin to Zosyn due to allergic reaction - Continue Zyvox - Reorder IR consult for possible drainage of right lower extremity - Nursing to monitor marked area for worsening redness Hypothyroidism Assessment: Stable hypothyroidism requiring continued thyroid hormone replacement therapy. Plan: - Continue levothyroxine Essential Hypertension Assessment: Hypertension requiring ongoing antihypertensive management. Plan: - Continue blood pressure medication Morbid Obesity Assessment: Patient with morbid obesity being monitored during hospitalization with improvement noted. Plan: - Monitor with possible discharge tomorrow as condition improves Plan discussed with: Patient My Orders My Orders Orders - KASSIDY CHIRINOS [employer] Procedure Category Date Status Time Linezolid 600mg/300ml PHA 05/21/25 In Process (Zyvox) 10:00 * Radiologist Consult CONS 05/21/25 Transmitted 09:27 Dietary Evaluation Review Recommendations by RD: Dietary education by RD Comments: 1) Encourage optimal PO intake 2) Collect HbA1c 3) Refer to outpatient RD for weight management 4) Follow-up with cardiology 5) Continue to monitor I&O, labs, and skin integrity Expected Outcomes/Goals: 1) appetite and labs to improve 2) wound to improve 3) f/u in 3-5 days Date of Service: May 21, 2025 Billing Provider: NATALYA ALY MD Common Visit Codes: [id number] INP/OBS CARE (MOD) KASSIDY CHIRINOS [employer] May 21, 2025 14:18
[2025-05-21 16:42] VITALS: BP 112/61; PULSE 90; RESP 16; TEMP 97.8; O2SAT 98
[2025-05-21 21:00] VITALS: BP 106/75; PULSE 68; RESP 18; TEMP 97.6; O2SAT 94
[2025-05-22 01:00] VITALS: BP 111/61; PULSE 63; RESP 18; TEMP 98.2; O2SAT 94
[2025-05-22 05:00] VITALS: BP 114/62; PULSE 68; RESP 18; TEMP 98; O2SAT 93
[2025-05-22 09:00] VITALS: BP 117/65; PULSE 64; RESP 18; TEMP 98.6; O2SAT 96
--- NOTE | 2025-05-22 09:48 | DVH ---
US RIGHT LOWER EXTREMITY ULTRASOU, HISTORY: fluid check for possible drainage TECHNICAL DATA: Transverse and longitudinal sonographic images were obtained of the right leg. COMPARISON: US RT LOWER DVT on DOS: 05/17/25 FINDINGS: IMPRESSION: Irregular phlegmon / fluid collection in the anterior calf measures up to 6.1 x 1.3 x 5.6 cm with den se septations.
--- NOTE | 2025-05-22 11:29 | DVHPN2 ---
Progress Note - Dictate Date Seen: May 22, 2025 Medical Necessity Reason Pt with a Central, PICC or Fol: No vital signs Vital Sign Date Time Temp Pulse Resp B/P (MAP) Pulse Ox O2 Delivery O2 Flow Rate FiO2 05/22/25 09:00 98.6 64 18 117/65 (82) 96 98.6 05/22/25 07:45 Room Air* 0 21 Total Intake and Output 05/21/25 05/21/25 05/22/25 15:00 23:00 07:00 Intake Total 600 ml 1350 ml 900 ml Balance 600 ml 1350 ml 900 ml medications Current Medications Medications Dose Ordered Sig/Roseanna Route Start Time Stop Time Status Last Admin Dose Admin Acetaminophen/ Hydrocodone Bitart 1 tab Q4HP PRN PO 05/17/25 19:30 05/20/25 14:25 1 TAB Temazepam 15 mg QHSP PRN PO 05/17/25 19:30 05/19/25 21:58 15 MG Ondansetron HCl 4 mg Q4HP PRN IV 05/17/25 19:30 Docusate Sodium 100 mg BIDPRN PRN PO 05/17/25 19:30 05/20/25 08:41 100 MG Enoxaparin Sodium 40 mg DAILY SC 05/18/25 10:00 05/22/25 09:39 40 MG Acetaminophen 650 mg Q6HP PRN PO 05/17/25 19:30 Hydralazine HCl 10 mg Q6HP PRN IV 05/18/25 13:15 Levothyroxine Sodium 125 mcg QAM@0600 PO 05/20/25 06:00 05/22/25 05:24 125 MCG Piperacillin Sod/ Tazobactam Sod 100 ml @ 25 mls/hr Q8H IV 05/21/25 03:00 05/22/25 02:28 25 MLS/HR Linezolid 300 ml @ 150 mls/hr Q12HR IV 05/21/25 10:00 05/22/25 09:32 150 MLS/HR objective General Appearance: alert, no distress HEENT: EOMI, PERRLA, normal external inspect of ears, no icterus, no nasal drainage Neck: no carotid bruit, no jugular venous distention (JVD), no lymphadenopathy Chest: normal thorax Respiratory: clear to auscultation, normal air movement Cardiovascular: regular rate and rhythm, no diastolic murmur, no jugular venous distention (JVD), no rub, no systolic murmur Abdominal: soft, no hepatomegaly, no mass, no splenomegaly, no tenderness Genitourinary: grossly normal external Musculoskeletal: no joint tenderness, no swelling Extremities: normal pulses, no calf tenderness, no clubbing, no cyanosis, no edema Skin: no bruising, no jaundice, no rash Neurological: alert, No focal deficit laboratory and microbiology Laboratory Tests 05/21/25 05:13 Test 05/21/25 05:13 Range/Units Serum Glucose 99 74-106 mg/dL Problem List 1. Right leg pain Monitor 2. Morbid obesity Monitor 3. Benign essential hypertension Monitor, PRN antihypertensives 4. Hypothyroid Monitor, daily labs 5. Cellulitis right lower extremity Monitor, IV abx, IR consult Assessment/Plan Subjective: Patient is awake and alert. Objective: Patient was admitted for right lower extremity swelling and was found to have cellulitis with fluid collection. She is status post drainage by IR, with only minimal fluid removed. Patient has a history of hypertension and morbid obesity. Plan: Continue to monitor EKG. Continue antibiotics for cellulitis. Continue antihypertensives and cardiac diet for morbid obesity. Await fluid culture reports. Discharge planning once IV antibiotic recommendations are finalized. Dietary Evaluation Review Recommendations by RD: Dietary education by RD Comments: 1) Encourage optimal PO intake 2) Collect HbA1c 3) Refer to outpatient RD for weight management 4) Follow-up with cardiology 5) Continue to monitor I&O, labs, and skin integrity Expected Outcomes/Goals: 1) appetite and labs to improve 2) wound to improve 3) f/u in 3-5 days Plan discussed with: Patient, Other YAAKOV ABEL NP May 22, 2025 11:29
[2025-05-22 13:00] VITALS: BP 144/85; PULSE 71; RESP 18; TEMP 97.8; O2SAT 95
--- NOTE | 2025-05-22 14:05 | DVH ---
US US GUIDANCE FOR NEEDLE PLACEME, HISTORY: RT CALF ASPIRATION PROCEDURE: An informed consent was obtained. The patient was placed supine on the gurney. The suspici ous fluid collection in the right leg was localized with ultrasound and the overlying skin prepped wi th chlorhexidine which was allowed to dry and draped in the usual sterile fashion. Time out was perfo rmed and infiltrated with 1% Xylocaine. With US guidance, 19-gauge centesis needle catheter was advan jennifer into the fluid collection. Small amount was aspirated for appropriate microbiology/cytology/micro biology and cytology analysis. Approximately 10 cc of bloody fluid was aspirated. No immediate com plication was identified. FINDINGS: Limited US scan of through the right leg shows a fluid collection appears multi-loculate d. IMPRESSION: US aspiration of a right leg fluid collection with 10 mL bloody fluid removed, likely a hematoma.
[2025-05-22 17:00] VITALS: BP 144/72; PULSE 74; RESP 18; TEMP 97.8; O2SAT 95
[2025-05-22 21:00] VITALS: BP 119/66; PULSE 68; RESP 18; TEMP 97.8; O2SAT 98
[2025-05-23 01:00] VITALS: BP 119/70; PULSE 63; RESP 18; TEMP 97.8; O2SAT 95
[2025-05-23 05:00] VITALS: BP 127/69; PULSE 60; RESP 18; TEMP 98.1; O2SAT 95
[2025-05-23 08:45] VITALS: BP 108/69; PULSE 62; RESP 18; TEMP 97.4; O2SAT 95
--- NOTE | 2025-05-23 12:29 | DVHPN2 ---
Progress Note - Dictate Date Seen: May 23, 2025 Medical Necessity Reason Pt with a Central, PICC or Fol: No vital signs Vital Sign Date Time Temp Pulse Resp B/P (MAP) Pulse Ox O2 Delivery O2 Flow Rate FiO2 05/23/25 08:45 97.4 62 18 108/69 (82) 95 97.4 05/23/25 08:08 Room Air* 0 21 Total Intake and Output 05/22/25 05/22/25 05/23/25 14:59 22:59 06:59 Intake Total 300 ml 800 ml 400 ml Balance 300 ml 800 ml 400 ml medications Current Medications Medications Dose Ordered Sig/Roseanna Route Start Time Stop Time Status Last Admin Dose Admin Acetaminophen/ Hydrocodone Bitart 1 tab Q4HP PRN PO 05/17/25 19:30 05/20/25 14:25 1 TAB Temazepam 15 mg QHSP PRN PO 05/17/25 19:30 05/19/25 21:58 15 MG Ondansetron HCl 4 mg Q4HP PRN IV 05/17/25 19:30 Docusate Sodium 100 mg BIDPRN PRN PO 05/17/25 19:30 05/20/25 08:41 100 MG Enoxaparin Sodium 40 mg DAILY SC 05/18/25 10:00 05/23/25 09:42 40 MG Acetaminophen 650 mg Q6HP PRN PO 05/17/25 19:30 Hydralazine HCl 10 mg Q6HP PRN IV 05/18/25 13:15 Levothyroxine Sodium 125 mcg QAM@0600 PO 05/20/25 06:00 05/23/25 05:57 125 MCG Piperacillin Sod/ Tazobactam Sod 100 ml @ 25 mls/hr Q8H IV 05/21/25 03:00 05/23/25 02:46 25 MLS/HR Linezolid 300 ml @ 150 mls/hr Q12HR IV 05/21/25 10:00 05/23/25 09:43 150 MLS/HR objective General Appearance: alert, no distress HEENT: EOMI, PERRLA, normal external inspect of ears, no icterus, no nasal drainage Neck: no carotid bruit, no jugular venous distention (JVD), no lymphadenopathy Chest: normal thorax Respiratory: clear to auscultation, normal air movement Cardiovascular: regular rate and rhythm, no diastolic murmur, no jugular venous distention (JVD), no rub, no systolic murmur Abdominal: soft, no hepatomegaly, no mass, no splenomegaly, no tenderness Genitourinary: grossly normal external Musculoskeletal: no joint tenderness, no swelling Extremities: normal pulses, no calf tenderness, no clubbing, no cyanosis, no edema Skin: no bruising, no jaundice, no rash Neurological: alert, No focal deficit laboratory and microbiology Laboratory Tests 05/21/25 05:13 Test 05/21/25 05:13 Range/Units Serum Glucose 99 74-106 mg/dL Problem List 1. Right leg pain Monitor 2. Morbid obesity Monitor 3. Benign essential hypertension Monitor, PRN antihypertensives 4. Hypothyroid Monitor, daily labs 5. Cellulitis right lower extremity Monitor, IV abx, IR consult Assessment/Plan Subjective: Patient is awake and alert. Objective: Patient is status post drainage of fluid collection from abscess to her right lower extremity. She was admitted for pain to right lower extremity and cellulitis. Patient was started on IV antibiotics Zyvox and Zosyn. Wound culture is currently pending. Plan: Continue current treatment. Preliminary culture shows no growth. Discharge planning for tomorrow. Dietary Evaluation Review Recommendations by RD: Dietary education by RD Comments: 1) Encourage optimal PO intake 2) Collect HbA1c 3) Refer to outpatient RD for weight management 4) Follow-up with cardiology 5) Continue to monitor I&O, labs, and skin integrity Expected Outcomes/Goals: 1) appetite and labs to improve 2) wound to improve 3) f/u in 3-5 days Plan discussed with: Patient, Other YAAKOV ABEL NP May 23, 2025 12:29
[2025-05-23 13:27] VITALS: BP 143/88; PULSE 67; RESP 18; TEMP 97; O2SAT 97
[2025-05-23 17:30] VITALS: BP 144/76; PULSE 59; RESP 17; TEMP 97.1; O2SAT 99
[2025-05-23 21:00] VITALS: BP 124/73; PULSE 65; RESP 18; TEMP 97.8; O2SAT 96
[2025-05-24] VITALS (7 sets, daily range): BP systolic 105–146; BP diastolic 60–90; PULSE 60–71; RESP 16–17; TEMP 36.4; O2SAT 95–96
[2025-05-24] MEDS ORDERED: LINE1TAB6 PO (11:43)
--- NOTE | 2025-05-24 11:43 | DVHDS2 ---
Discharge Summary Date of Admission May 17, 2025 at 19:22 Date of Discharge: May 24, 2025 Labs/Diagnostic Data: Laboratory Results Test 05/21/25 05:13 05/18/25 13:40 05/18/25 04:17 05/17/25 13:07 White Blood Count 6.2 10^3/uL (4.4-10.8) Red Blood Count 4.44 10^6/uL (4.0-5.20) Hemoglobin 13.7 g/dL (12.2-16.2) Hematocrit 40.1 % (36.0-46.0) Mean Corpuscular Volume 90.3 fL (80.0-100.0) Mean Corpuscular Hemoglobin 30.9 pg (28.0-32.0) Mean Corpuscular Hemoglobin Concent 34.2 g/dL (32.0-36.0) Red Cell Distribution Width 14.9 % (11.8-14.3) Platelet Count 160 10^3/uL (140-450) Mean Platelet Volume 8.5 fL (6.9-10.8) Neutrophils (%) (Auto) 63.3 % (37.0-80.0) Lymphocytes (%) (Auto) 24.2 % (10.0-50.0) Monocytes (%) (Auto) 8.6 % (0.0-12.0) Eosinophils (%) (Auto) 3.5 % (0.0-7.0) Basophils (%) (Auto) 0.4 % (0.0-2.0) Neutrophils # (Auto) 3.9 10 ^3/uL (1.6-8.6) Lymphocytes # (Auto) 1.5 10 ^3/uL (0.4-5.4) Monocytes # (Auto) 0.5 10 ^3/uL (0-1.3) Eosinophils # (Auto) 0.2 10 ^3/uL (0-0.8) Basophils # (Auto) 0 10 ^3/uL (0-0.2) Nucleated Red Blood Cells 0.1 % Sodium Level 139 mmol/L (136-145) Potassium Level 3.6 mmol/L (3.5-5.1) Chloride Level 105 mmol/L (98-107) Carbon Dioxide Level 25 mmol/L (20-31) Anion Gap 9 (5-15) Blood Urea Nitrogen 8 mg/dL (9-23) Creatinine 0.69 mg/dL (0.550-1.02) Glomerular Filtration Rate Calc 100 mL/min (>90) BUN/Creatinine Ratio 11.6 (10.0-20.0) Serum Glucose 99 mg/dL (74-106) Calcium Level 8.6 mg/dL (8.7-10.4) Prothrombin Time 12.8 sec (9.3-11.8) Prothrombin Time INR 1.23 (0.9-1.15) Activated Partial Thromboplast Time 29.3 SEC (24.5-34.5) Total Bilirubin 0.9 mg/dL (0.2-1.0) Aspartate Amino Transferase (AST) 42 U/L (13-40) Alanine Aminotransferase (ALT) 37 U/L (7-40) Alkaline Phosphatase 96 U/L (46-116) Total Protein 6.7 g/dL (5.7-8.2) Albumin 3.7 g/dL (3.2-4.8) Erythrocyte Sedimentation Rate 19 mm/hr (0-20) Lactic Acid Level 1.1 mmol/L (0.4-2.0) C-Reactive Protein High Sensitivity 1.06 mg/dL (<1.0) B-Type Natriuretic Peptide 37.57 pg/mL (0-100) Other Laboratory Tests 05/21/25 05:13 Brief Hx & Hospital Course: 59 y/o female patient with history of hypertension presents with right leg pain. Patient states she hit her leg on a sign post. Patient also complains of bruising, redness, and swelling to the leg. Patient was admitted May 17, 2025 for pain to right lower extremity. Patient found to have cellulitis. Patient had a fluid collection status post drainage by IR. Patient started on IV antibiotics. Wound culture results are still pending. Patient was sent home on 10 days of Zyvox and instructed to follow-up closely with her PCP within a week. The patient received proper medical treatment and medications. Vital signs, Imaging and Laboratory Work was monitored daily. All consults recommendations were followed as provided. There were no complaints or new complaints upon discharge, all questions and concerns were answered. Patient was advised to return to the ER or call 911 if any headaches, dizziness, shortness of breath, chest pain, bleeding, fevers, or worsening of medical condition. Patient/Family was counseled about treatment plan, medications, possible side effects, patient verbalized understanding. All questions were answered to the best of my ability. The patient symptoms improved and they are okay to be DC. Condition at Discharge: Stable Final Diagnosis/Problems List 1. Right leg pain 2. Morbid obesity 3. Benign essential hypertension 4. Hypothyroid 5. Cellulitis right lower extremity Discharge Disposition: Home Discharge Instruct/Medications Scheduled Levothyroxine Sodium (Levothyroxine Sodium), 1 TAB PO DAILY, (Reported) Linezolid (Zyvox), 600 MG PO BID Discharge Statement: "Patient was advised to return to the ER or call 911 if any headaches, dizziness, shortness of breath, chest pain, abdominal pain, bleeding, fevers, or worsening of medical condition. Patient was counseled about treatment plan, medications, possible side effects, patientverbalized understanding. All questions were answered to the best of my ability. This discharge took greater then 30 minutes in planning, reviewing documentation, counseling the patient, and discussing with other team members." ASSESSMENT ASSESSMENT Assessment YAAKOV ABEL NP May 24, 2025 11:43
== END 2025-05-24 18:38 | disposition home or self-care (01) | DRG 383 ==
LOC: ER 11:54 → OVERFLOW 19:22 → WEST WING 21:10
PROVIDERS: ADMIT Nurse Practitioner; ATTEND Nurse Practitioner
PROC: 0Y9H3ZX Drainage of Right Lower Leg, Percutaneous Approach, Diagnostic (ICD-10-PCS; principal; 2025-05-22)
DX: L03.115 Cellulitis of right lower limb (principal); E03.9 Hypothyroidism, unspecified; T36.8X5A Adverse effect of other systemic antibiotics, initial encounter; I10 Essential (primary) hypertension; E66.01 Morbid (severe) obesity due to excess calories; Z79.899 Other long term (current) drug therapy; Z68.42 Body mass index [BMI] 45.0-49.9, adult; Y92.89 Other specified places as the place of occurrence of the external cause
CPT/HCPCS: 36415; 73701; 75989; 76881; 76942; 80048; 80053; 82565; 83605; 83880; 85025; 85610; 85652; 85730; 86141; 87071; 87205; 93971; 96365; C1729; G0378; J2543

== ENCOUNTER 2025-06-11 11:23 | Inpatient (IN) | payer OTHER ==
[~2025-06-11] VITALS: Ht 165.1 cm; Wt 129.2 kg
[~2025-06-11 11:23] MED LIST: LEVO125T7 PO; LINE1TAB6 PO
--- NOTE | 2025-06-11 12:22 | ED.PDOC ---
History of Present Illness HPI Comments Right leg redness swelling four months that has progressed Chief Complaint: Lower Extremity Comments Patient is prediabetic. Does not smoke. She was admitted on May 17 for the same thing. Initially she had pump into a road signed. This led to a infection on the right leg. She was on antibiotics in the hospital is still on oral antibiotics at home. However in the last few days she has noticed the redness and swelling has worsened again. No fever or chills. 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 Reported Medications Levothyroxine Sodium (Levothyroxine Sodium) 125 Mcg Tab, 1 TAB PO DAILY 05/17/25 Information Source: Patient Mode of Arrival: Ambulatory Severity: Moderate Timing: Days Duration: Since onset Past Medical History PAST MEDICAL HISTORY: HTN, Thyroid Past Medical History (Other): Pre diabetes Surgical History: Denies all surgeries WIRE WHEELER 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: 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 History Family History Family History: Reviewed,noncontributory to illness, No family hx of Cancer, No family hx of DM, No family hx of Heart romain, No family hx of HTN, No family hx ofKidney romain, No family hx of Liver romain, No family hx of Lung romain, No family hx of Stroke Social History Smoker: Non-Smoker Alcohol: Denies ETOH Use Drugs: Denies Drug Use Lives In: Home Constitutional: denies: chills, diaphoresis, fatigue, fever, malaise, sweats, weakness, others EENTM: denies: blurred vision, double vision, ear bleeding, ear discharge, ear drainage, ear pain, ear ringing, eye pain, eye redness, hearing loss, mouth pain, mouth swelling, nasal discharge, nose bleeding, nose congestion, nose pain, photophobia, tearing, throat pain, throat swelling, voice changes, others Respiratory: denies: cough, hemoptysis, orthopnea, SOB at rest, shortness of breath, SOB with excertion, stridor, wheezing, others Cardiovascular: denies: chest pain, dizzy spells, diaphoresis, Dyspnea on exertion, edema, irregular heart beat, left arm pain, lightheadedness, palpitations, PND, syncope, others Gastrointestinal: denies: abdomen distended, abdominal pain, blood streaked bowels, constipated, diarrhea, dysphagia, difficulty swallowing, hematemesis, melena, nausea, poor appetite, poor fluid intake, rectal bleeding, rectal pain, vomiting, others Genitourinary: denies: abnormal vagina bleeding, burning, dyspareunia, dysuria, flank pain, frequency, hematuria, incontinence, pain, , vagina discharge, urgency, others Neurological: denies: dizziness, fainting, headache, left sided numbness, left sided weakness, numbness, paresthesia, pre-existing deficit, right sided numbness, right sided weakness, seizure, speech problems, tingling, tremors, weakness, others Musculoskeletal: denies: back pain, gout, joint pain, joint swelling, muscle pain, muscle stiffness, neck pain, others Integumetry: reports: change in color, rash; denies: bruises, change in hair/nails, dryness, laceration, lesions, lumps, wounds, others Allergic/Immunocompromised: denies: Difficulty Healing, Frequent Infections, Hives, Itching, others Hematologic/Lymphatic: denies: anemia, blood clots, easy bleeding, easy bruising, swollen glands, others Endocrine: denies: excessive hunger, excessive sweating, excessive thirst, excessive urination, flushing, intolerance to cold, intolerance to heat, unexplained weight gain, unexplained weight loss, others Psychiatric: denies: anxiety, bipolar disorder, depression, hopeless, panic disorder, schizophrenia, sleepless, suicidal, others All Other Systems: Reviewed and Negative Physical Exam General Appearance: No Apparent Distress, Normal HEENT: Normal ENT Inspection, Pharynx Normal, TMs Normal Neck: Full Range of Motion, Non-Tender, Normal, Normal Inspection Respiratory: Chest Non-Tender, Lungs Clear, No Accessory Muscle Use, No Respiratory Distress, Normal Breath Sounds Cardiovascular: No Edema, No JVD, No Murmur, No Gallop, Normal Peripheral Pulses, Regular Rate/Rhythm Breast Exam: Deferred Gastrointestinal: No Organomegaly, Non Tender, No Pulsatile Mass, Normal Bowel Sounds, Soft Genitalia: Deferred Pelvic: Deferred Rectal: Deferred Extremities: No calf tenderness, Normal capillary refill, Normal inspection, Normal range of motion, Non-tender, No pedal edema Musculoskeletal : Apperance: Normal Neurologic: Alert, district court judge II-XII nml as Tested, No Motor Deficits, Normal Affect, Normal Mood, No Sensory Deficits Cerebellar Function: Normal Reflexes: Normal Skin: Dry, Rash (Right lower leg to mid lower leg with a patch of cellulitic rash.), Warm Lymphatic: No Adenopathy Was a procedure done? Was a procedure done?: No Differential Dx Considerations may include: Cellulitis, abscess, fasciitis, X-Ray, Labs, Meds, VS Vital Signs Date Time Temp Pulse Resp B/P (MAP) Pulse Ox O2 Delivery O2 Flow Rate FiO2 06/11/25 12:51 68 18 95 Room Air* 0 21 06/11/25 12:50 97.8 68 18 177/96 (123) 95 97.8 06/11/25 11:23 97.4 86 19 170/101 95 97.4 Lab Test 06/11/25 12:52 Range/Units White Blood Count 5.3 4.4-10.8 10^3/uL Red Blood Count 4.69 4.0-5.20 10^6/uL Hemoglobin 14.5 12.2-16.2 g/dL Hematocrit 42.8 36.0-46.0 % Mean Corpuscular Volume 91.2 80.0-100.0 fL Mean Corpuscular Hemoglobin 30.8 28.0-32.0 pg Mean Corpuscular Hemoglobin Concent 33.8 32.0-36.0 g/dL Red Cell Distribution Width 15.1 H 11.8-14.3 % Platelet Count 175 140-450 10^3/uL Mean Platelet Volume 8.3 6.9-10.8 fL Neutrophils (%) (Auto) 67.6 37.0-80.0 % Lymphocytes (%) (Auto) 22.4 10.0-50.0 % Monocytes (%) (Auto) 6.6 0.0-12.0 % Eosinophils (%) (Auto) 2.9 0.0-7.0 % Basophils (%) (Auto) 0.5 0.0-2.0 % Neutrophils # (Auto) 3.6 1.6-8.6 10 ^3/uL Lymphocytes # (Auto) 1.2 0.4-5.4 10 ^3/uL Monocytes # (Auto) 0.3 0-1.3 10 ^3/uL Eosinophils # (Auto) 0.2 0-0.8 10 ^3/uL Basophils # (Auto) 0 0-0.2 10 ^3/uL Nucleated Red Blood Cells 0.0 % Sodium Level 142 136-145 mmol/L Potassium Level 4.0 3.5-5.1 mmol/L Chloride Level 106 98-107 mmol/L Carbon Dioxide Level 26 20-31 mmol/L Anion Gap 10 5-15 Blood Urea Nitrogen 10 9-23 mg/dL Creatinine 0.77 0.550-1.02 mg/dL Glomerular Filtration Rate Calc 89 >90 mL/min BUN/Creatinine Ratio 13.0 10.0-20.0 Serum Glucose 184 H 74-106 mg/dL Calcium Level 8.7 8.7-10.4 mg/dL Current Medications Medications (Trade) Dose Ordered Sig/Roseanna Route Start Time Stop Time Status Last Admin Ceftriaxone Sodium 50 ml @ 100 mls/hr ONCE ONCE IV 06/11/25 12:30 06/11/25 12:59 DC 06/11/25 12:54 Time of 1ST Reevaluation: 13:43 Reevaluation 1ST: Unchanged Patient Education/Counseling: Diagnosis, Treatment, Prognosis, Need For Follow Up Family Education/Counseling: No Family Present Comments This is a patient who is prediabetic, who had recently been admitted to the hospital for the same cellulitic rash. She is currently on outpatient antibiotic to complete her treatment. However the cellulitis worsened. She has now failed outpatient treatment. Patient will be admitted for IV antibiotics and reassessment of the infection SEPSIS Sepsis Screen Date sepsis recognized/suspect: Jun 11, 2025 Time Sepsis recognized/suspect: 1123 Recent Procedure: No On Antibiotic Therapy: No Respiratory Rate >20: No Heart Rate >90: No Temp<36 C (96.8 F) or >38.3 C: No SBP <90 or MAP <65 mmHG: No New Acute Mental Status Change: No Is the patient on CPAP, BIPAP,: No Vital Signs Date Time Temp Pulse Resp B/P (MAP) Pulse Ox O2 Delivery O2 Flow Rate FiO2 06/11/25 12:51 68 18 95 Room Air* 0 21 06/11/25 12:50 97.8 68 18 177/96 (123) 95 97.8 06/11/25 11:23 97.4 86 19 170/101 95 97.4 Laboratory Tests Test 06/11/25 12:52 White Blood Count 5.3 10^3/uL (4.4-10.8) Medications Medications Dose Ordered Sig/Roseanna Route Start Time Stop Time Status Last Admin Dose Admin Ceftriaxone Sodium 50 ml @ 100 mls/hr ONCE ONCE IV 06/11/25 12:30 06/11/25 12:59 DC 06/11/25 12:54 Departure 1 Departure Time of Disposition: 13:43 Impression: Primary Impression: Cellulitis of leg, right Disposition: 09 ADMITTED INPATIENT Admit to: Med Surg Condition: Stable Discharged With: Self Critical Care Note Critical Care Time?: No Stability Stability form required: KATHYA Seay MD Jun 11, 2025 12:22
[2025-06-11 12:51] VITALS: PULSE 68; RESP 18; O2SAT 95
[2025-06-11 13:07] LABS: Hematocrit 42.8 % (36.0-46.0); Hemoglobin 14.5 g/dL (12.2-16.2); Mean Corpuscular Hemoglobin 30.8 pg (28.0-32.0); Mean Corpuscular Volume 91.2 fL (80.0-100.0); Nucleated Red Blood Cells % 0.0 %
[2025-06-11 13:16] LABS: Chloride 106 mmol/L (98-107); Potassium 4.0 mmol/L (3.5-5.1); Sodium 142 mmol/L (136-145)
[2025-06-11 13:17] LABS: Anion Gap 10 (5-15); Carbon Dioxide 26 mmol/L (20-31)
[2025-06-11 13:18] LABS: Calcium 8.7 mg/dL (8.7-10.4)
[2025-06-11 13:22] LABS: BUN/Creatinine Ratio 13.0 (10.0-20.0); Blood Urea Nitrogen 10 mg/dL (9-23)
[2025-06-11 13:23] LABS: Glucose 184 mg/dL (74-106)
[2025-06-11 15:39] VITALS: PULSE 67; RESP 18; O2SAT 95
--- NOTE | 2025-06-11 15:44 | DVHHP2 ---
History of Present Illness History of Present Illness Patient is 59-year-old female who was recently hospitalized in May 17 requiring IV antibiotic for right lower extremity cellulitis. Patient was discharged home with antibiotic linezolid oral however patient had allergic reaction therefore primary care physician prescribed clindamycin 300 mg p.o. 4 times daily. However patient continued to have right lower extremity erythema, swelling, fluctuating mass over the fountain area of like lower extremity prompted visit to emergency department visit. Patient has been concerned about erythema has not been getting better, see continued discomfort, denying fever, chills, motor or sensory deficits. Patient was able to ambulate on on both extremity. No any other new complaints. Patient has been taking clindamycin 300 mg p.o. 4 times daily on 06 June for past four days which was prescribed by her primary care physician. Past medical history: Prediabetic, hypothyroidism Surgical history: Denies Family history: Noncontributory Social history: Lives with family Allergies: Linezolid Home medication: Levothyroxine 125 mg p.o. daily Review of Systems Constitutional: No: Fever, Chills, Sweats, Weakness, Malaise, Other Eyes: No: Pain, Vision change, Conjunctivae inflammation, Eyelid inflammation, Other, Redness ENT: No: Ear pain, Ear discharge, Nose pain, Nose discharge, Nose congestion, Mouth pain, Mouth swelling, Throat pain, Throat swelling, Other Respiratory: No: Cough, Dry, Shortness of breath, SOB with excertion, Wheezing, Hemoptysis, Pleuritic Pain, Sputum, Wheezing, Other Cardiovascular: No: Chest Pain, Palpitations, Orthopnea, Paroxysmal Noc. Dyspnea, Edema, Lt Headedness, Other Gastrointestinal: No: Nausea, Vomiting, Abdominal Pain, Diarrhea, Constipation, Melena, Hematochezia, Other Genitourinary: No Dysuria, No Frequency, No Incontinence, No Hematuria, No Retention, No Other Musculoskeletal: leg pain Skin: No: Rash, Lesions, Jaundice, Bruising, Other Neurological: No: Weakness, Numbness, Incoordination, Change in speech, Confusion, Seizures, Other Allergies: Coded Allergies: Linezolid (Verified Allergy, Severe, 06/11/25) Exam Vital Signs Vital Signs Date Time Temp Pulse Resp B/P (MAP) Pulse Ox O2 Delivery O2 Flow Rate FiO2 06/11/25 15:39 98.2 67 18 142/75 (97) 95 98.2 06/11/25 15:39 Room Air* 0 21 Exam General Appearance: Cooperative. Well developed. Well nourished. NAD Head Exam: Normal inspection Neck Exam: Normal inspection. Non-tender. Normal alignment Pulmonary/Respiratory: Chest non-tender. Clear bilateral breath sounds Cardiovascular/Chest: Regular rate and rhythm. No murmurs. No JVD. Peripheral Pulses: 2+ Radial (R). 2+ Radial (L). 2+ Pedal (R). 2+ Pedal (L) Abdominal Exam: Normal bowel sounds. Soft. Nontender. No hepatospenomegaly. No masses Ankle Exam: Negative ankle edema Lower extremities: Right lower extremity erythema with fluctuating mass over anterior fountain, presence of pedal pulse. Neuro/Mental Status: A&O x4. Coherent Thoughts/Psych: Normal thought pattern. Appropriate mood and affect. Good judgement and insight Appearance: In no acute distress Skin Exam: Normal inspection. Normal color. Warm. Dry Labs/Xrays Labs Test 06/11/25 12:52 Range/Units White Blood Count 5.3 4.4-10.8 10^3/uL Red Blood Count 4.69 4.0-5.20 10^6/uL Hemoglobin 14.5 12.2-16.2 g/dL Hematocrit 42.8 36.0-46.0 % Mean Corpuscular Volume 91.2 80.0-100.0 fL Mean Corpuscular Hemoglobin 30.8 28.0-32.0 pg Mean Corpuscular Hemoglobin Concent 33.8 32.0-36.0 g/dL Red Cell Distribution Width 15.1 H 11.8-14.3 % Platelet Count 175 140-450 10^3/uL Mean Platelet Volume 8.3 6.9-10.8 fL Neutrophils (%) (Auto) 67.6 37.0-80.0 % Lymphocytes (%) (Auto) 22.4 10.0-50.0 % Monocytes (%) (Auto) 6.6 0.0-12.0 % Eosinophils (%) (Auto) 2.9 0.0-7.0 % Basophils (%) (Auto) 0.5 0.0-2.0 % Neutrophils # (Auto) 3.6 1.6-8.6 10 ^3/uL Lymphocytes # (Auto) 1.2 0.4-5.4 10 ^3/uL Monocytes # (Auto) 0.3 0-1.3 10 ^3/uL Eosinophils # (Auto) 0.2 0-0.8 10 ^3/uL Basophils # (Auto) 0 0-0.2 10 ^3/uL Nucleated Red Blood Cells 0.0 % Sodium Level 142 136-145 mmol/L Potassium Level 4.0 3.5-5.1 mmol/L Chloride Level 106 98-107 mmol/L Carbon Dioxide Level 26 20-31 mmol/L Anion Gap 10 5-15 Blood Urea Nitrogen 10 9-23 mg/dL Creatinine 0.77 0.550-1.02 mg/dL Glomerular Filtration Rate Calc 89 >90 mL/min BUN/Creatinine Ratio 13.0 10.0-20.0 Serum Glucose 184 H 74-106 mg/dL Calcium Level 8.7 8.7-10.4 mg/dL SEPSIS Sepsis Screen Date sepsis recognized/suspect: Jun 11, 2025 Time Sepsis recognized/suspect: 1122 Recent Procedure: No On Antibiotic Therapy: No Respiratory Rate >20: No Heart Rate >90: No Temp<36 C (96.8 F) or >38.3 C: No SBP <90 or MAP <65 mmHG: No New Acute Mental Status Change: No Is the patient on CPAP, BIPAP,: No Physician Orders Admit (06/11/25 15:35) Code Status (06/11/25 15:35) Vital Signs .PER UNIT PROTOCOL (06/11/25 15:35) Review Orders With Adm.Md (06/11/25 15:35) Regular Diet (06/11/25 Dinner) Notify Md Of Changes From Base (06/11/25 15:35) Advance Directive (06/11/25 15:35) Urinalysis (06/11/25 15:35) Patient Condition (06/11/25 15:35) Allergies (06/11/25 15:35) Hydromorphone Injection (Dilaudid Inject (06/11/25 15:45) Hemoglobin A1c (06/11/25 15:35) Lovenox 40mg (06/12/25 10:00) Rt Lower Dvt (06/11/25 15:35) Rt Lower Extremity W Con (06/11/25 15:35) Clindamycin Ivpb Cleocin (06/11/25 22:00) Clindamycin Ivpb Cleocin (06/11/25 15:45) * Wound Consult (06/11/25 ) Vital Signs Date Time Temp Pulse Resp B/P (MAP) Pulse Ox O2 Delivery O2 Flow Rate FiO2 06/11/25 15:39 98.2 67 18 142/75 (97) 95 98.2 06/11/25 15:39 67 18 95 Room Air* 0 21 06/11/25 12:51 68 18 95 Room Air* 0 21 06/11/25 12:50 97.8 68 18 177/96 (123) 95 97.8 06/11/25 11:23 97.4 86 19 170/101 95 97.4 Laboratory Tests Test 06/11/25 12:52 White Blood Count 5.3 10^3/uL (4.4-10.8) Medications Medications Dose Ordered Sig/Roseanna Route Start Time Stop Time Status Last Admin Dose Admin Ceftriaxone Sodium 50 ml @ 100 mls/hr ONCE ONCE IV 06/11/25 12:30 06/11/25 12:59 DC 06/11/25 12:54 100 MLS/HR Assessment/Plan Assessment/Plan Right lower extremity cellulitis Right lower extremity abscess -CT of right extremity: Fluid collection in anterior medial leg measuring 2.2* 7.1 cm. Anterior leg suggestive of cellulitis. -IV antibiotic with Zosyn and vancomycin -surgical consultation for possible debridement -wound consult -pain management with Dilaudid. Prediabetic HGB A1c 5.7% -lifestyle modification, regular exercise, encouraged low-carbohydrate index diet Hypothyroidism -continue levothyroxine 125 mcg p.o. daily Morbid obesity BMI 35.6 kg/m2 -lifestyle modification, encouraged weight loss, strengthening exercise History of hypertension -stable Ruled out right lower extremity DVT -right lower extremity ultrasound ruled out DVT PUD prophylaxis with Protonix DVT prophylaxis with enoxaparin Goals of care discussed greater than 24 minutes, full code status. Plan discussed with Dr. Covarrubias. Plan discussed with: Patient, Other My Orders Orders - CAL GONZALES RESIDENT Procedure Category Date Status Time Admit ADMIT 06/11/25 Verified 15:35 Code Status CODE 06/11/25 Verified 15:35 Vital Signs JEFF 06/11/25 Verified 15:35 Review Orders With [facility] 06/11/25 Verified Adm. 15:35 Regular Diet DIET 06/11/25 Verified Dinner Notify Md Of Changes [facility] 06/11/25 Verified From Base 15:35 Advance Directive JEFF 06/11/25 Verified 15:35 Urinalysis LAB 06/11/25 Verified 15:35 Patient Condition ORDERS 06/11/25 Verified 15:35 Allergies JEFF 06/11/25 Verified 15:35 Hydromorphone PHA 06/11/25 Verified Injection (Dilaudid 15:45 Hemoglobin A1c LAB 06/11/25 Verified 15:35 Lovenox 40mg PHA 06/12/25 Verified 10:00 Rt Lower Dvt US 06/11/25 Verified 15:35 Rt Lower Extremity W CT 06/11/25 Verified CON 15:35 Clindamycin Ivpb PHA 06/11/25 Verified Cleocin 22:00 Clindamycin Ivpb PHA 06/11/25 Verified Cleocin 15:45 * Wound Consult CONS 06/11/25 Verified Date of Service: Jun 11, 2025 Billing Provider: MIKE COVARRUBIAS MD Common Visit Codes: [id number] INP/OBS CARE (HIGH) Secondary Visit Codes: 91551-[id number] CARE PLAN 30 MINUTES CAL GONZALES RESIDENT Jun 11, 2025 15:44
--- NOTE | 2025-06-11 16:23 | DVH ---
CLINICAL HISTORY: DVT TECHNIQUE: Color and duplex doppler imaging of the right lower extremity veins was performed. Vessel compression if possible was also performed. WID: COMPARISON: CT LOWER EXTREMITY NON JOINT RIGH on DOS: 06/11/25, FINDINGS: Right common femoral vein: Normal compressibility and flow. Right femoral vein: Normal compressibility and flow. Right popliteal vein: Normal compressibility and flow. Posterior tibial vein at the ankle is patent. Complex fluid collection in the medial calf measures at least 6.5 x 6.8 x 1.5 cm containing internal reticulations and complexity. IMPRESSION: 1. NO SONOGRAPHIC EVIDENCE FOR DEEP VENOUS THROMBOSIS IN THE RIGHT LOWER EXTREMITY VEINS. 2. Complex fluid collection in the medial calf with internal reticulations and intermediate density. DDX includes hematoma or abscess/ phlegmon in the appropriate clinical setting.
[2025-06-11] MEDS: CLINDAMYCIN 300MG IV 50 ML IV ONE (16:33)
--- NOTE | 2025-06-11 16:35 | DVH ---
INDICATION: Right lower extremity cellulitis COMPARISON: US RIGHT LOWER EXTREMITY ULTRASOU on DOS: 05/22/25, CT RT LOWER EXTREMITY W CON on DOS: TECHNIQUE: CT of the right lower extremity was performed without contrast. Volume transverse images w ere obtained and reconstructed in multiple planes using bone and soft tissue algorithms. Radiation Dose Information: CT Dose: CTDI volume is 7.78 mGy. Dose-length product is 2.13 mGy*cm FINDINGS: The alignment is normal. The joint spaces are normal. There is no fracture, dislocation or aggressive osseous lesion. Edema, fat stranding, and skin thickening is seen throughout the anterior leg suggestive of celluliti s. Fluid collection is seen in the anterior medial leg which measures 2.2 x 7.1 cm. IMPRESSION: 1. No acute osseous abnormality. 2. Edema, fat stranding, and skin thickening is seen throughout the anterior leg suggestive of cellul itis. 3. Fluid collection is seen in the anterior medial leg which measures 2.[address] scans at this medical facility are performed using dose modulation techniques as appropriate t o a performed exam including the following: Automated exposure control was utilized; adjustment of th e MA and/or KV according to patient size; and use of iterative reconstruction technique.
[2025-06-11] MEDS ORDERED: VANCOMYCIN PER PHARMACY 0 MG IV SCH (17:15)
[2025-06-11] MEDS: PANTOPRAZOLE 40 MG TAB PO ONE (17:49)
[2025-06-11] MEDS: PIPERACILLIN-TAZOB 3.375GM 100 ML IV ONE (17:49)
[2025-06-11] MEDS: VANCOMYCIN 1.5GM/250ML 250 ML IV ONE (17:51)
[2025-06-11 20:04] LABS: Urine Protein, UAD Negative (Negative)
[2025-06-11] MEDS: CLINDAMYCIN 900MG IV 50 ML IV SCH (22:00)
[2025-06-11] MEDS ORDERED: CLINDAMYCIN 600MG IV 50 ML IV SCH (22:00)
[2025-06-11 23:13] VITALS: BP 121/74; PULSE 67; RESP 14; TEMP 97.8; O2SAT 95
[2025-06-12] VITALS (8 sets, daily range): BP systolic 110–153; BP diastolic 39–86; PULSE 54–97; RESP 16–20; TEMP 97.4–98.3; O2SAT 95–96
[2025-06-12] MEDS ORDERED: PNEUMOCOCCAL VACC POLYS 25 MCG/0.5 ML VIAL IM ONE
[2025-06-12] MEDS: PIPERACILLIN-TAZOB 3.375GM 100 ML IV SCH (05:35)
[2025-06-12 05:41] LABS: Hematocrit 40.7 % (36.0-46.0); Hemoglobin 13.8 g/dL (12.2-16.2); Mean Corpuscular Hemoglobin 30.7 pg (28.0-32.0); Mean Corpuscular Volume 90.2 fL (80.0-100.0); Nucleated Red Blood Cells % 0.1 %
[2025-06-12] MEDS: PANTOPRAZOLE 40 MG TAB PO SCH (05:41)
[2025-06-12 05:53] LABS: Potassium 3.6 mmol/L (3.5-5.1); Sodium 142 mmol/L (136-145)
[2025-06-12 05:54] LABS: Anion Gap 9 (5-15); Carbon Dioxide 26 mmol/L (20-31)
[2025-06-12 05:59] LABS: BUN/Creatinine Ratio 17.1 (10.0-20.0); Blood Urea Nitrogen 12 mg/dL (9-23); Glucose 100 mg/dL (74-106)
[2025-06-12 06:02] LABS: Calcium 8.6 mg/dL (8.7-10.4); Chloride 107 mmol/L (98-107)
[2025-06-12] MEDS: ENOXAPARIN SOD 40 MG/0.4 ML SYRINGE SC SCH (08:14)
[2025-06-12 11:12] LABS: Hepatitis B Surface Antigen Negative (Negative)
[2025-06-12 11:26] LABS: Hepatitis C Antibody Negative (Negative)
--- NOTE | 2025-06-12 17:52 | DVHPN2 ---
Reviewed: H&P Changes from previous H/P or p: No Changes General: Per HPI Eyes: No Pain, No Vision change, No Conjunctivae inflammation, No Eyelid inflammation, No Other, No Redness ENT: No Ear pain, No Ear discharge, No Nose pain, No Nose discharge, No Nose congestion, No Mouth pain, No Mouth swelling, No Throat pain, No Throat swelling, No Other Cardiovascular: No Chest Pain, No Palpitations, No Orthopnea, No Paroxysmal Noc. Dyspnea, No Edema, No Lt Headedness, No Other Respiratory: No Cough, No Dry, No Shortness of breath, No SOB with excertion, No Wheezing, No Hemoptysis, No Pleuritic Pain, No Sputum, No Other Gastrointestinal: No Nausea, No Vomiting, No Abdominal Pain, No Diarrhea, No Constipation, No Melena, No Hematochezia, No Other Genitourinary: No Dysuria, No Frequency, No Incontinence, No Hematuria, No Retention, No Other Musculoskeletal: leg pain Skin: No Rash, No Lesions, No Jaundice, No Bruising, No Other Objective Vitals Vital Signs Date Time Temp Pulse Resp B/P (MAP) Pulse Ox O2 Delivery O2 Flow Rate FiO2 06/12/25 17:00 97.4 68 18 153/86 (108) 95 97.4 06/11/25 23:07 Room Air* 0 21 Intake/Output Intake and Output 06/12/25 07:00 Intake Total 300 ml Balance 300 ml Intake Oral 100 ml IV Total 200 ml # Voids 1 Exam General Appearance: Cooperative. Well developed. Well nourished. NAD Head Exam: Normal inspection Neck Exam: Normal inspection. Non-tender. Normal alignment Pulmonary/Respiratory: Chest non-tender. Clear bilateral breath sounds Cardiovascular/Chest: Regular rate and rhythm. No murmurs. No JVD. Peripheral Pulses: 2+ Radial (R). 2+ Radial (L). 2+ Pedal (R). 2+ Pedal (L) Abdominal Exam: Normal bowel sounds. Soft. Nontender. No hepatospenomegaly. No masses Ankle Exam: Negative ankle edema Lower extremities: Right lower extremity erythema with fluctuating mass over anterior fountain, presence of pedal pulse. Neuro/Mental Status: A&O x4. Coherent Thoughts/Psych: Normal thought pattern. Appropriate mood and affect. Good judgement and insight Appearance: In no acute distress Skin Exam: Normal inspection. Normal color. Warm. Dry Medications Current Medications Medications Dose Ordered Sig/Roseanna Route Start Time Stop Time Status Last Admin Dose Admin Hydromorphone HCl 0.5 mg Q4HP PRN IV 06/11/25 16:30 Enoxaparin Sodium 40 mg DAILY SC 06/12/25 10:00 06/12/25 08:14 40 MG Piperacillin Sod/ Tazobactam Sod 100 ml @ 25 mls/hr Q8HR IV 06/12/25 06:00 06/12/25 16:25 25 MLS/HR Pantoprazole Sodium 40 mg DAILY@0600 PO 06/12/25 06:00 06/12/25 05:41 40 MG Clindamycin Phosphate 50 ml @ 50 mls/hr Q8HR IV 06/11/25 22:00 06/12/25 15:38 50 MLS/HR Levothyroxine Sodium 25 mcg QAM@0600 PO 06/13/25 06:00 Levothyroxine Sodium 100 mcg QAM@0600 PO 06/13/25 06:00 Laboratory Results Laboratory Tests 06/12/25 05:10 Chemistry Test 06/12/25 05:10 Calcium Level 8.6 mg/dL (8.7-10.4) L Urinalysis Test 06/11/25 15:48 Urine Color Light-yellow (Yellow) Urine Clarity Clear (Clear) Urine pH 5.5 (5.0-9.0) Urine Specific [place] 1.018 (1.001-1.035) Urine Protein Negative (Negative) Urine Ketones Negative (Negative) Urine Blood Negative /uL (Negative) Urine Nitrite Negative (Negative) Urine Bilirubin Negative (Negative) Urine Urobilinogen Normal mg/dL (Negative) Urine Leukocyte Esterase Trace /uL (Negative) Urine RBC 1 /hpf (0 - 4) Urine Microscopic WBC 16 /HPF (0-5) H Urine Squamous Epithelial Cells Few /hpf (<5) Urine Bacteria None seen /hpf (None Seen) Urine Mucus Few (None Seen) Urine Glucose Normal mg/dL (Normal) Labs and/or images reviewed: Labs reviewed by me, Image(s) reviewed by me Assessment/Plan Assessment/Plan 59-year-old female who was recently hospitalized in May 17 requiring IV antibiotic for right lower extremity cellulitis. Patient was discharged home with antibiotic linezolid oral however patient had allergic reaction therefore primary care physician prescribed clindamycin 300 mg p.o. 4 times daily. However patient continued to have right lower extremity erythema, swelling, fluctuating mass over the fountain area of like lower extremity prompted visit to emergency department visit. Patient has been concerned about erythema has not been getting better, see continued discomfort, denying fever, chills, motor or sensory deficits. Patient was able to ambulate on on both extremity. No any other new complaints. 06/12 - pending surgical eval. continue iv abx zosyn / clinda (for mrsa). recurrent episode (last visit tx with zosyn as well, and noted rxn to vanco/linezolid) Right lower extremity cellulitis Right lower extremity abscess -CT of right extremity: Fluid collection in anterior medial leg measuring 2.2* 7.1 cm. Anterior leg suggestive of cellulitis. -IV antibiotic with Zosyn and vancomycin -surgical consultation for possible debridement -wound consult -pain management with Dilaudid. Prediabetic HGB A1c 5.7% -lifestyle modification, regular exercise, encouraged low-carbohydrate index diet Hypothyroidism -continue levothyroxine 125 mcg p.o. daily Morbid obesity BMI 35.6 kg/m2 -lifestyle modification, encouraged weight loss, strengthening exercise History of hypertension -stable Ruled out right lower extremity DVT -right lower extremity ultrasound ruled out DVT PUD prophylaxis with Protonix DVT prophylaxis with enoxaparin medsurg full code Plan discussed with: Patient My Orders Orders - BUBBA CLIFFORD MD Procedure Category Date Status Time Levothyroxine Tablet PHA 06/13/25 In Process (Synthroid Tablet) 06:00 Levothyroxine Tablet PHA 06/13/25 In Process (Synthroid Tablet) 06:00 Date of Service: Jun 12, 2025 Billing Provider: BUBBA CLIFFORD MD Common Visit Codes: [id number] INP/OBS CARE(HIGH) BUBBA CLIFFORD MD Jun 12, 2025 17:52
--- NOTE | 2025-06-12 20:27 | DVHCONRES ---
Date Seen: Jun 12, 2025 Resident Creating Document: RADHA MENJIVAR Jr., MD Referring Physician er Reason for Consultation right leg abscess History of Present Illness 59-year-old female who was recently hospitalized in May 17 requiring IV antibiotic for right lower extremity cellulitis. Patient was discharged home with antibiotic linezolid oral however patient had allergic reaction therefore primary care physician prescribed clindamycin 300 mg p.o. 4 times daily. However patient continued to have right lower extremity erythema, swelling, fluctuating mass over the fountain area of like lower extremity prompted visit to emergency department visit. Patient has been concerned about erythema has not been getting better, see continued discomfort, denying fever, chills, motor or sensory deficits. Patient was able to ambulate on on both extremity. No any other new complaints. CT scan demonstrates a anterior fountain abscess measuring 2 x 7 cm Past Medical History Pre diabetes Past Surgical History None Family History: Patient reports no known family medical history. Allergies: Coded Allergies: Linezolid (Verified Allergy, Severe, 06/11/25) Vancomycin (Verified Allergy, Unknown, 06/11/25) Home Meds Active Scripts Linezolid (Zyvox) 600 Mg Tab, 600 MG PO BID for 10 Days, #20 TAB Prov:YAAKOV ABEL Geovanny LOG BUNCHER 05/24/25 Reported Medications Levothyroxine Sodium (Levothyroxine Sodium) 125 Mcg Tab, 1 TAB PO DAILY 05/17/25 Current Medications Current Medications Medications (Trade) Dose Ordered Sig/Roseanna Route PRN Reason Start Time Stop Time Status Last Admin Enoxaparin Sodium (Lovenox) 40 mg DAILY SC 06/12/25 10:06/12/25 08:14 Clindamycin Phosphate 50 ml @ 50 mls/hr Q8HR IV 06/11/25 22:00 06/11/25 17:03 DC Piperacillin Sod/ Tazobactam Sod 100 ml @ 25 mls/hr Q8HR IV 06/12/25 06:00 06/12/25 16:25 Pantoprazole Sodium (Protonix Tablet) 40 mg DAILY@0600 PO 06/12/25 06:00 06/12/25 05:41 Clindamycin Phosphate 50 ml @ 50 mls/hr Q8HR IV 06/11/25 22:00 06/12/25 15:38 Levothyroxine Sodium (Synthroid Tablet) 25 mcg QAM@0600 PO 06/13/25 06:00 Levothyroxine Sodium (Synthroid Tablet) 100 mcg QAM@0600 PO 06/13/25 06:00 Review of Systems All systems reviewed otherwise negative other than what is in HPI. Vital Signs Vital Signs Date Time Temp Pulse Resp B/P (MAP) Pulse Ox O2 Delivery O2 Flow Rate FiO2 06/12/25 17:00 97.4 68 18 153/86 (108) 95 97.4 06/11/25 23:07 Room Air* 0 21 Physical Exam Head eyes ears nose and throat exam has nonicteric conjunctiva is pink neck was supple no JVD no lymphadenopathy no carotid bruits lungs are clear to auscultation heart was regular rate and rhythm abdomen was soft nontender no pulsatile abdominal mass arose lower extremity was palpable femoral and pedal pulses bilaterally she has a fluctuating collection on the anterior right fountain. With the cellulitis in the surrounding tissues. Labs/Diagnostic Data Labs Test 06/12/25 05:10 06/11/25 15:48 06/11/25 12:52 Range/Units White Blood Count 6.8 # 4.4-10.8 10^3/uL Red Blood Count 4.51 4.0-5.20 10^6/uL Hemoglobin 13.8 12.2-16.2 g/dL Hematocrit 40.7 36.0-46.0 % Mean Corpuscular Volume 90.2 80.0-100.0 fL Mean Corpuscular Hemoglobin 30.7 28.0-32.0 pg Mean Corpuscular Hemoglobin Concent 34.0 32.0-36.0 g/dL Red Cell Distribution Width 15.2 H 11.8-14.3 % Platelet Count 174 140-450 10^3/uL Mean Platelet Volume 8.3 6.9-10.8 fL Neutrophils (%) (Auto) 67.0 37.0-80.0 % Lymphocytes (%) (Auto) 20.1 10.0-50.0 % Monocytes (%) (Auto) 8.9 0.0-12.0 % Eosinophils (%) (Auto) 3.5 0.0-7.0 % Basophils (%) (Auto) 0.5 0.0-2.0 % Neutrophils # (Auto) 4.5 1.6-8.6 10 ^3/uL Lymphocytes # (Auto) 1.4 0.4-5.4 10 ^3/uL Monocytes # (Auto) 0.6 0-1.3 10 ^3/uL Eosinophils # (Auto) 0.2 0-0.8 10 ^3/uL Basophils # (Auto) 0 0-0.2 10 ^3/uL Nucleated Red Blood Cells 0.1 % Sodium Level 142 136-145 mmol/L Potassium Level 3.6 3.5-5.1 mmol/L Chloride Level 107 98-107 mmol/L Carbon Dioxide Level 26 20-31 mmol/L Anion Gap 9 5-15 Blood Urea Nitrogen 12 9-23 mg/dL Creatinine 0.70 0.550-1.02 mg/dL Glomerular Filtration Rate Calc 100 >90 mL/min BUN/Creatinine Ratio 17.1 10.0-20.0 Serum Glucose 100 74-106 mg/dL Calcium Level 8.6 L 8.7-10.4 mg/dL Hepatitis B Surface Antigen Negative Negative Hepatitis C Antibody Negative Negative Urine Color Light-yellow Yellow Urine Clarity Clear Clear Urine pH 5.5 5.0-9.0 Urine Specific [place] 1.018 1.001-1.035 Urine Protein Negative Negative Urine Ketones Negative Negative Urine Blood Negative Negative /uL Urine Nitrite Negative Negative Urine Bilirubin Negative Negative Urine Urobilinogen Normal Negative mg/dL Urine Leukocyte Esterase Trace Negative /uL Urine RBC 1 0 - 4 /hpf Urine Microscopic WBC 16 H 0-5 /HPF Urine Squamous Epithelial Cells Few <5 /hpf Urine Bacteria None seen None Seen /hpf Urine Mucus Few None Seen Urine Glucose Normal Normal mg/dL Hemoglobin A1c 5.7 <5.7 % A1C Assessment Right leg abscess we will require surgical debridement. The patient is aware and consented to the procedure. Plan/Recommendation Right leg abscess we will require surgical debridement. The patient is aware and consented to the procedure. Plan discussed with: Patient RADHA MENJIVAR Jr., MD Jun 12, 2025 20:27
[2025-06-13] VITALS (7 sets, daily range): BP systolic 103–145; BP diastolic 66–95; PULSE 60–68; RESP 15–19; TEMP 97.5–98.3; O2SAT 95–99
[2025-06-13] MEDS: LEVOTHYROXINE SODIUM 100 MCG TAB PO SCH (05:05)
[2025-06-13] MEDS: LEVOTHYROXINE SODIUM 25 MCG TAB PO SCH (05:05)
[2025-06-13 06:44] LABS: Hematocrit 41.0 % (36.0-46.0); Hemoglobin 13.8 g/dL (12.2-16.2); Mean Corpuscular Hemoglobin 30.5 pg (28.0-32.0); Mean Corpuscular Volume 90.6 fL (80.0-100.0); Nucleated Red Blood Cells % 0.0 %
[2025-06-13 07:04] LABS: Alanine Aminotransferase 32 U/L (7-40); Alkaline Phosphatase 77 U/L (46-116); Anion Gap 11 (5-15); BUN/Creatinine Ratio 18.8 (10.0-20.0); Blood Urea Nitrogen 13 mg/dL (9-23); Carbon Dioxide 25 mmol/L (20-31); Chloride 106 mmol/L (98-107); Glucose 92 mg/dL (74-106); Potassium 3.9 mmol/L (3.5-5.1); Sodium 142 mmol/L (136-145); Total Protein 7.0 g/dL (5.7-8.2)
[2025-06-13 07:05] LABS: Albumin 3.8 g/dL (3.2-4.8)
[2025-06-13 07:06] LABS: Bilirubin, Total 1.0 mg/dL (0.2-1.0); INR 1.22 (0.9-1.15); Partial Thromboplastin Time 27.8 SEC (24.5-34.5); Prothrombin Time 12.7 sec (9.3-11.8)
[2025-06-13 07:17] LABS: Calcium 8.6 mg/dL (8.7-10.4)
--- NOTE | 2025-06-13 11:25 | DVHPN2 ---
Reviewed: H&P Changes from previous H/P or p: No Changes General: Per HPI Eyes: No Pain, No Vision change, No Conjunctivae inflammation, No Eyelid inflammation, No Other, No Redness ENT: No Ear pain, No Ear discharge, No Nose pain, No Nose discharge, No Nose congestion, No Mouth pain, No Mouth swelling, No Throat pain, No Throat swelling, No Other Cardiovascular: No Chest Pain, No Palpitations, No Orthopnea, No Paroxysmal Noc. Dyspnea, No Edema, No Lt Headedness, No Other Respiratory: No Cough, No Dry, No Shortness of breath, No SOB with excertion, No Wheezing, No Hemoptysis, No Pleuritic Pain, No Sputum, No Other Gastrointestinal: No Nausea, No Vomiting, No Abdominal Pain, No Diarrhea, No Constipation, No Melena, No Hematochezia, No Other Genitourinary: No Dysuria, No Frequency, No Incontinence, No Hematuria, No Retention, No Other Musculoskeletal: leg pain Skin: No Rash, No Lesions, No Jaundice, No Bruising, No Other Objective Vitals Vital Signs Date Time Temp Pulse Resp B/P (MAP) Pulse Ox O2 Delivery O2 Flow Rate FiO2 06/13/25 09:00 98.1 68 18 145/95 (112) 99 98.1 06/13/25 08:18 Room Air* 0 21 Intake/Output Intake and Output 06/13/25 07:00 Intake Total 450 ml Balance 450 ml Intake Oral 100 ml IV Total 350 ml # Voids 5 Exam General Appearance: Cooperative. Well developed. Well nourished. NAD Head Exam: Normal inspection Neck Exam: Normal inspection. Non-tender. Normal alignment Pulmonary/Respiratory: Chest non-tender. Clear bilateral breath sounds Cardiovascular/Chest: Regular rate and rhythm. No murmurs. No JVD. Peripheral Pulses: 2+ Radial (R). 2+ Radial (L). 2+ Pedal (R). 2+ Pedal (L) Abdominal Exam: Normal bowel sounds. Soft. Nontender. No hepatospenomegaly. No masses Ankle Exam: Negative ankle edema Lower extremities: Right lower extremity erythema with fluctuating mass over anterior fountain, presence of pedal pulse. Neuro/Mental Status: A&O x4. Coherent Thoughts/Psych: Normal thought pattern. Appropriate mood and affect. Good judgement and insight Appearance: In no acute distress Skin Exam: Normal inspection. Normal color. Warm. Dry Medications Current Medications Medications Dose Ordered Sig/Roseanna Route Start Time Stop Time Status Last Admin Dose Admin Hydromorphone HCl 0.5 mg Q4HP PRN IV 06/11/25 16:30 Enoxaparin Sodium 40 mg DAILY SC 06/12/25 10:00 06/12/25 08:14 40 MG Piperacillin Sod/ Tazobactam Sod 100 ml @ 25 mls/hr Q8HR IV 06/12/25 06:00 06/13/25 06:29 25 MLS/HR Pantoprazole Sodium 40 mg DAILY@0600 PO 06/12/25 06:00 06/13/25 05:06 40 MG Clindamycin Phosphate 50 ml @ 50 mls/hr Q8HR IV 06/11/25 22:00 06/13/25 05:06 50 MLS/HR Levothyroxine Sodium 25 mcg QAM@0600 PO 06/13/25 06:00 06/13/25 05:05 25 MCG Levothyroxine Sodium 100 mcg QAM@0600 PO 06/13/25 06:00 06/13/25 05:05 100 MCG Laboratory Results Laboratory Tests 06/13/25 05:20 Chemistry Test 06/13/25 05:20 Albumin 3.8 g/dL (3.2-4.8) Calcium Level 8.6 mg/dL (8.7-10.4) L Total Protein 7.0 g/dL (5.7-8.2) Coagulation Test 06/13/25 05:20 Prothrombin Time 12.7 sec (9.3-11.8) H Prothrombin Time INR 1.22 (0.9-1.15) H Activated Partial Thromboplast Time 27.8 SEC (24.5-34.5) LFT Test 06/13/25 05:20 Alanine Aminotransferase (ALT) 32 U/L (7-40) Alkaline Phosphatase 77 U/L (46-116) Aspartate Amino Transferase (AST) 38 U/L (13-40) Total Bilirubin 1.0 mg/dL (0.2-1.0) Urinalysis Test 06/11/25 15:48 Urine Color Light-yellow (Yellow) Urine Clarity Clear (Clear) Urine pH 5.5 (5.0-9.0) Urine Specific [place] 1.018 (1.001-1.035) Urine Protein Negative (Negative) Urine Ketones Negative (Negative) Urine Blood Negative /uL (Negative) Urine Nitrite Negative (Negative) Urine Bilirubin Negative (Negative) Urine Urobilinogen Normal mg/dL (Negative) Urine Leukocyte Esterase Trace /uL (Negative) Urine RBC 1 /hpf (0 - 4) Urine Microscopic WBC 16 /HPF (0-5) H Urine Squamous Epithelial Cells Few /hpf (<5) Urine Bacteria None seen /hpf (None Seen) Urine Mucus Few (None Seen) Urine Glucose Normal mg/dL (Normal) Microbiology Microbiology Date/Time Source Procedure Growth Status 06/12/25 05:10 Blood Blood Culture - Preliminary NO GROWTH AFTER 24 HOURS OF INCUBATION. Resulted Labs and/or images reviewed: Labs reviewed by me, Image(s) reviewed by me Assessment/Plan Assessment/Plan 59-year-old female who was recently hospitalized in May 17 requiring IV antibiotic for right lower extremity cellulitis. Patient was discharged home with antibiotic linezolid oral however patient had allergic reaction therefore primary care physician prescribed clindamycin 300 mg p.o. 4 times daily. However patient continued to have right lower extremity erythema, swelling, fluctuating mass over the fountain area of like lower extremity prompted visit to emergency department visit. Patient has been concerned about erythema has not been getting better, see continued discomfort, denying fever, chills, motor or sensory deficits. Patient was able to ambulate on on both extremity. No any other new complaints. 06/12 - pending surgical eval. continue iv abx zosyn / clinda (for mrsa). recurrent episode (last visit tx with zosyn as well, and noted rxn to vanco/linezolid) 06/13: Surgery wants to take patient for incision drainage. Continuing IV antibiotics. Patient continues to improve. Right lower extremity cellulitis Right lower extremity abscess -CT of right extremity: Fluid collection in anterior medial leg measuring 2.2* 7.1 cm. Anterior leg suggestive of cellulitis. -IV antibiotic with Zosyn and vancomycin -surgical consultation for possible debridement -wound consult -pain management with Dilaudid. Prediabetic HGB A1c 5.7% -lifestyle modification, regular exercise, encouraged low-carbohydrate index diet Hypothyroidism -continue levothyroxine 125 mcg p.o. daily Morbid obesity BMI 35.6 kg/m2 -lifestyle modification, encouraged weight loss, strengthening exercise History of hypertension -stable Ruled out right lower extremity DVT -right lower extremity ultrasound ruled out DVT PUD prophylaxis with Protonix DVT prophylaxis with enoxaparin medsurg full code Plan discussed with: Patient My Orders Orders - BUBBA CLIFFORD MD Procedure Category Date Status Time Levothyroxine Tablet PHA 06/13/25 In Process (Synthroid Tablet) 06:00 Levothyroxine Tablet PHA 06/13/25 In Process (Synthroid Tablet) 06:00 Date of Service: Jun 13, 2025 Billing Provider: BUBBA CLIFFORD MD Common Visit Codes: [id number] INP/OBS CARE(HIGH) BUBBA CLIFFORD MD Jun 13, 2025 11:25
[2025-06-13] MEDS ORDERED: HYDROmorphone HCL 2 MG/ML VL/or syr ONE (14:21)
[2025-06-13] MEDS ORDERED: fentaNYL CITRATE 100 MCG/2 ML VL ONE (14:21)
[2025-06-13] MEDS ORDERED: ONDANSETRON HCL 4 MG/2 ML VIAL ONE (15:23)
--- NOTE | 2025-06-13 15:44 | DVHOP2 ---
Operative Report - 2 Report Details Date: 06/13/25 Preop Diagnosis: right leg fluid collection Postop Diagnosis: Right leg hematoma Surgeon: Tyler Arambula MD Anesthesiologist: GILLIAN Anesthesia: General Consent: The patient was informed of the risks and benefits of the procedure. These include but are not limited to complications of anesthesia, postoperative infection, incomplete relief of symptoms, recurrence of symptoms, damage to blood vessels, nerves and tendons, deep venous thrombosis, pulmonary embolism and possible need for repeat surgery in the future. Estimated Blood Loss: Minimal Findings: Right anterior fountain hematoma Indications for Surgery: Right leg collection Name of Procedure Performed Right anterior fountain fluid collection incision and drainage Procedure Details Procedure Details: Patient was identified in the preop hold area she was consented in preop by myself she was brought back to the operating room placed the operating table in supine position after adequate induction of anesthesia antibiotics and time-out right leg was prepped and draped normal surgical fashion a anterior longitudinal incision was made. A hematoma was encountered it was cultured it was evacuated the area was pulse irrigated out. The wound was then packed with Betadine- soaked gauze. The wound was reapproximated with 1 interrupted nylon suture. Kerlix and Alexander wrap were applied patient was taken the recovery room in stable condition. Specimen: Right hematoma of the leg wound culture Condition Good Disposition Still a Patient TYLER ARAMBULA Jr., MD Jun 13, 2025 15:44
[2025-06-13] MEDS ORDERED: HYDROmorphone HCL 2 MG/ML VL/or syr IV PRN (15:45)
[2025-06-13] MEDS ORDERED: ACETAMINOPHEN IV 1000 MG/100ML (10MG/ML) IV PRN (15:45)
[2025-06-13] MEDS ORDERED: ONDANSETRON HCL 4 MG/2 ML VIAL IV PRN (15:45)
[2025-06-13] MEDS ORDERED: hydrALAZINE HCL 20 MG/ML VL IV PRN (15:45)
[2025-06-14] VITALS (7 sets, daily range): BP systolic 109–157; BP diastolic 61–90; PULSE 61–77; RESP 18; TEMP 97.9–98.5; O2SAT 92–95
[2025-06-14 06:21] LABS: Hematocrit 38.1 % (36.0-46.0); Hemoglobin 13.1 g/dL (12.2-16.2); Mean Corpuscular Hemoglobin 31.0 pg (28.0-32.0); Mean Corpuscular Volume 90.2 fL (80.0-100.0); Nucleated Red Blood Cells % 0.0 %
[2025-06-14 06:43] LABS: Alanine Aminotransferase 28 U/L (7-40); Alkaline Phosphatase 75 U/L (46-116); Anion Gap 7 (5-15); BUN/Creatinine Ratio 17.4 (10.0-20.0); Blood Urea Nitrogen 12 mg/dL (9-23); Calcium 9.0 mg/dL (8.7-10.4); Carbon Dioxide 28 mmol/L (20-31); Chloride 106 mmol/L (98-107); Glucose 88 mg/dL (74-106); Potassium 4.2 mmol/L (3.5-5.1); Sodium 141 mmol/L (136-145); Total Protein 6.6 g/dL (5.7-8.2)
[2025-06-14 06:44] LABS: Albumin 3.6 g/dL (3.2-4.8); Bilirubin, Total 0.8 mg/dL (0.2-1.0)
--- NOTE | 2025-06-14 09:11 | DVHPN2 ---
Reviewed: H&P Changes from previous H/P or p: No Changes General: Per HPI Eyes: No Pain, No Vision change, No Conjunctivae inflammation, No Eyelid inflammation, No Other, No Redness ENT: No Ear pain, No Ear discharge, No Nose pain, No Nose discharge, No Nose congestion, No Mouth pain, No Mouth swelling, No Throat pain, No Throat swelling, No Other Cardiovascular: No Chest Pain, No Palpitations, No Orthopnea, No Paroxysmal Noc. Dyspnea, No Edema, No Lt Headedness, No Other Respiratory: No Cough, No Dry, No Shortness of breath, No SOB with excertion, No Wheezing, No Hemoptysis, No Pleuritic Pain, No Sputum, No Other Gastrointestinal: No Nausea, No Vomiting, No Abdominal Pain, No Diarrhea, No Constipation, No Melena, No Hematochezia, No Other Genitourinary: No Dysuria, No Frequency, No Incontinence, No Hematuria, No Retention, No Other Musculoskeletal: leg pain Skin: No Rash, No Lesions, No Jaundice, No Bruising, No Other Objective Vitals Vital Signs Date Time Temp Pulse Resp B/P (MAP) Pulse Ox O2 Delivery O2 Flow Rate FiO2 06/14/25 05:00 98.0 61 18 122/78 (93) 95 98.0 06/13/25 15:31 Nasal Cannula 2.0 06/13/25 15:31 97 Intake/Output Intake and Output 06/14/25 07:00 Intake Total 650 ml Balance 650 ml Intake Oral 500 ml IV Total 150 ml # Voids 5 # Bowel Movements 1 Exam General Appearance: Cooperative. Well developed. Well nourished. NAD Head Exam: Normal inspection Neck Exam: Normal inspection. Non-tender. Normal alignment Pulmonary/Respiratory: Chest non-tender. Clear bilateral breath sounds Cardiovascular/Chest: Regular rate and rhythm. No murmurs. No JVD. Peripheral Pulses: 2+ Radial (R). 2+ Radial (L). 2+ Pedal (R). 2+ Pedal (L) Abdominal Exam: Normal bowel sounds. Soft. Nontender. No hepatospenomegaly. No masses Ankle Exam: Negative ankle edema Lower extremities: Right lower extremity erythema with fluctuating mass over anterior fountain, presence of pedal pulse. Neuro/Mental Status: A&O x4. Coherent Thoughts/Psych: Normal thought pattern. Appropriate mood and affect. Good judgement and insight Appearance: In no acute distress Skin Exam: Normal inspection. Normal color. Warm. Dry Medications Current Medications Medications Dose Ordered Sig/Roseanna Route Start Time Stop Time Status Last Admin Dose Admin Hydromorphone HCl 0.5 mg Q4HP PRN IV 06/11/25 16:30 Enoxaparin Sodium 40 mg DAILY SC 06/12/25 10:00 06/12/25 08:14 40 MG Piperacillin Sod/ Tazobactam Sod 100 ml @ 25 mls/hr Q8HR IV 06/12/25 06:00 06/14/25 06:19 25 MLS/HR Pantoprazole Sodium 40 mg DAILY@0600 PO 06/12/25 06:00 06/14/25 06:18 40 MG Clindamycin Phosphate 50 ml @ 50 mls/hr Q8HR IV 06/11/25 22:00 06/14/25 06:19 50 MLS/HR Levothyroxine Sodium 25 mcg QAM@0600 PO 06/13/25 06:00 06/14/25 06:18 25 MCG Levothyroxine Sodium 100 mcg QAM@0600 PO 06/13/25 06:00 06/14/25 06:18 100 MCG Laboratory Results Laboratory Tests 06/14/25 05:52 Chemistry Test 06/14/25 05:52 Albumin 3.6 g/dL (3.2-4.8) Calcium Level 9.0 mg/dL (8.7-10.4) Total Protein 6.6 g/dL (5.7-8.2) LFT Test 06/14/25 05:52 Alanine Aminotransferase (ALT) 28 U/L (7-40) Alkaline Phosphatase 75 U/L (46-116) Aspartate Amino Transferase (AST) 30 U/L (13-40) Total Bilirubin 0.8 mg/dL (0.2-1.0) Urinalysis Test 06/11/25 15:48 Urine Color Light-yellow (Yellow) Urine Clarity Clear (Clear) Urine pH 5.5 (5.0-9.0) Urine Specific [place] 1.018 (1.001-1.035) Urine Protein Negative (Negative) Urine Ketones Negative (Negative) Urine Blood Negative /uL (Negative) Urine Nitrite Negative (Negative) Urine Bilirubin Negative (Negative) Urine Urobilinogen Normal mg/dL (Negative) Urine Leukocyte Esterase Trace /uL (Negative) Urine RBC 1 /hpf (0 - 4) Urine Microscopic WBC 16 /HPF (0-5) H Urine Squamous Epithelial Cells Few /hpf (<5) Urine Bacteria None seen /hpf (None Seen) Urine Mucus Few (None Seen) Urine Glucose Normal mg/dL (Normal) Microbiology Microbiology Date/Time Source Procedure Growth Status 06/12/25 05:10 Blood Blood Culture - Preliminary NO GROWTH AFTER 48 HOURS OF INCUBATION. Resulted Labs and/or images reviewed: Labs reviewed by me, Image(s) reviewed by me Assessment/Plan Assessment/Plan 59-year-old female who was recently hospitalized in May 17 requiring IV antibiotic for right lower extremity cellulitis. Patient was discharged home with antibiotic linezolid oral however patient had allergic reaction therefore primary care physician prescribed clindamycin 300 mg p.o. 4 times daily. However patient continued to have right lower extremity erythema, swelling, fluctuating mass over the fountain area of like lower extremity prompted visit to emergency department visit. Patient has been concerned about erythema has not been getting better, see continued discomfort, denying fever, chills, motor or sensory deficits. Patient was able to ambulate on on both extremity. No any other new complaints. 06/12 - pending surgical eval. continue iv abx zosyn / clinda (for mrsa). recurrent episode (last visit tx with zosyn as well, and noted rxn to vanco/linezolid) 06/13: Surgery wants to take patient for incision drainage. Continuing IV antibiotics. Patient continues to improve. 06/14, patient is postop day 1, had incision and drainage yesterday with surgery samples were taken sent to lab. Waiting for culture growth to deescalate antibiotics. Continuing on Zosyn and clinda. Right lower extremity cellulitis Right lower extremity abscess -CT of right extremity: Fluid collection in anterior medial leg measuring 2.2* 7.1 cm. Anterior leg suggestive of cellulitis. -IV antibiotic with Zosyn and vancomycin -surgical consultation for possible debridement -wound consult -pain management with Dilaudid. Prediabetic HGB A1c 5.7% -lifestyle modification, regular exercise, encouraged low-carbohydrate index diet Hypothyroidism -continue levothyroxine 125 mcg p.o. daily Morbid obesity BMI 35.6 kg/m2 -lifestyle modification, encouraged weight loss, strengthening exercise History of hypertension -stable Ruled out right lower extremity DVT -right lower extremity ultrasound ruled out DVT PUD prophylaxis with Protonix DVT prophylaxis with enoxaparin medsurg full code Plan discussed with: Patient My Orders Orders - BUBBA CLIFFORD MD Procedure Category Date Status Time Apply: BANNER 06/13/25 In Process 10:20 * Dietary Consult CONS 06/13/25 Transmitted 15:37 Date of Service: Jun 14, 2025 Billing Provider: BUBBA CLIFFORD MD Common Visit Codes: [id number] INP/OBS CARE(HIGH) BUBBA CLIFFORD MD Jun 14, 2025 09:11
[2025-06-14] MEDS: NIFEdipine 10 MG CAP PO ONE (14:30)
[2025-06-14] MEDS: HYDROMORPHONE HCL 1 MG/ML INJ IV PRN (16:42)
[2025-06-15] VITALS (7 sets, daily range): BP systolic 102–146; BP diastolic 55–84; PULSE 64–69; RESP 16–22; TEMP 97.9–99.4; O2SAT 91–95
[2025-06-15 08:46] LABS: Hematocrit 40.5 % (36.0-46.0); Hemoglobin 13.7 g/dL (12.2-16.2); Mean Corpuscular Hemoglobin 30.8 pg (28.0-32.0); Mean Corpuscular Volume 90.9 fL (80.0-100.0); Nucleated Red Blood Cells % 0.1 %
[2025-06-15] MEDS: NIFEdipine 10 MG CAP PO SCH (11:27)
--- NOTE | 2025-06-15 15:03 | DVHPN2 ---
Reviewed: H&P Changes from previous H/P or p: No Changes General: Per HPI Eyes: No Pain, No Vision change, No Conjunctivae inflammation, No Eyelid inflammation, No Other, No Redness ENT: No Ear pain, No Ear discharge, No Nose pain, No Nose discharge, No Nose congestion, No Mouth pain, No Mouth swelling, No Throat pain, No Throat swelling, No Other Cardiovascular: No Chest Pain, No Palpitations, No Orthopnea, No Paroxysmal Noc. Dyspnea, No Edema, No Lt Headedness, No Other Respiratory: No Cough, No Dry, No Shortness of breath, No SOB with excertion, No Wheezing, No Hemoptysis, No Pleuritic Pain, No Sputum, No Other Gastrointestinal: No Nausea, No Vomiting, No Abdominal Pain, No Diarrhea, No Constipation, No Melena, No Hematochezia, No Other Genitourinary: No Dysuria, No Frequency, No Incontinence, No Hematuria, No Retention, No Other Musculoskeletal: leg pain Skin: No Rash, No Lesions, No Jaundice, No Bruising, No Other Objective Vitals Vital Signs Date Time Temp Pulse Resp B/P (MAP) Pulse Ox O2 Delivery O2 Flow Rate FiO2 06/15/25 12:44 98.7 64 18 102/62 (75) 92 98.7 06/14/25 20:00 Room Air* 0 21 Intake/Output Intake and Output 06/15/25 07:00 Intake Total 1910 ml Balance 1910 ml Intake Oral 1560 ml IV Total 350 ml # Voids 10 # Bowel Movements 1 Exam General Appearance: Cooperative. Well developed. Well nourished. NAD Head Exam: Normal inspection Neck Exam: Normal inspection. Non-tender. Normal alignment Pulmonary/Respiratory: Chest non-tender. Clear bilateral breath sounds Cardiovascular/Chest: Regular rate and rhythm. No murmurs. No JVD. Peripheral Pulses: 2+ Radial (R). 2+ Radial (L). 2+ Pedal (R). 2+ Pedal (L) Abdominal Exam: Normal bowel sounds. Soft. Nontender. No hepatospenomegaly. No masses Ankle Exam: Negative ankle edema Lower extremities: Right lower extremity erythema with fluctuating mass over anterior fountain, presence of pedal pulse. Neuro/Mental Status: A&O x4. Coherent Thoughts/Psych: Normal thought pattern. Appropriate mood and affect. Good judgement and insight Appearance: In no acute distress Skin Exam: Normal inspection. Normal color. Warm. Dry Medications Current Medications Medications Dose Ordered Sig/Roseanna Route Start Time Stop Time Status Last Admin Dose Admin Hydromorphone HCl 0.5 mg Q4HP PRN IV 06/11/25 16:30 06/14/25 16:42 0.5 MG Enoxaparin Sodium 40 mg DAILY SC 06/12/25 10:00 06/15/25 10:00 40 MG Piperacillin Sod/ Tazobactam Sod 100 ml @ 25 mls/hr Q8HR IV 06/12/25 06:00 06/15/25 14:02 25 MLS/HR Pantoprazole Sodium 40 mg DAILY@0600 PO 06/12/25 06:00 06/15/25 05:53 40 MG Clindamycin Phosphate 50 ml @ 50 mls/hr Q8HR IV 06/11/25 22:00 06/15/25 14:02 50 MLS/HR Levothyroxine Sodium 25 mcg QAM@0600 PO 06/13/25 06:00 06/15/25 05:53 25 MCG Levothyroxine Sodium 100 mcg QAM@0600 PO 06/13/25 06:00 06/15/25 05:53 100 MCG Nifedipine 30 mg DAILY PO 06/15/25 10:00 06/15/25 11:27 30 MG Laboratory Results Laboratory Tests 06/14/25 05:52 06/15/25 08:16 Urinalysis Test 06/11/25 15:48 Urine Color Light-yellow (Yellow) Urine Clarity Clear (Clear) Urine pH 5.5 (5.0-9.0) Urine Specific [place] 1.018 (1.001-1.035) Urine Protein Negative (Negative) Urine Ketones Negative (Negative) Urine Blood Negative /uL (Negative) Urine Nitrite Negative (Negative) Urine Bilirubin Negative (Negative) Urine Urobilinogen Normal mg/dL (Negative) Urine Leukocyte Esterase Trace /uL (Negative) Urine RBC 1 /hpf (0 - 4) Urine Microscopic WBC 16 /HPF (0-5) H Urine Squamous Epithelial Cells Few /hpf (<5) Urine Bacteria None seen /hpf (None Seen) Urine Mucus Few (None Seen) Urine Glucose Normal mg/dL (Normal) Microbiology Microbiology Date/Time Source Procedure Growth Status 06/13/25 15:17 Leg Right Gram Stain - Final Resulted 06/13/25 15:17 Leg Right Anaerobic Culture Pending Resulted 06/13/25 15:17 Leg Right Aerobic Culture - Preliminary Resulted 06/12/25 05:10 Blood Blood Culture - Preliminary NO GROWTH AFTER 72 HOURS OF INCUBATION. Resulted Labs and/or images reviewed: Labs reviewed by me, Image(s) reviewed by me Assessment/Plan Assessment/Plan 59-year-old female who was recently hospitalized in May 17 requiring IV antibiotic for right lower extremity cellulitis. Patient was discharged home with antibiotic linezolid oral however patient had allergic reaction therefore primary care physician prescribed clindamycin 300 mg p.o. 4 times daily. However patient continued to have right lower extremity erythema, swelling, fluctuating mass over the fountain area of like lower extremity prompted visit to emergency department visit. Patient has been concerned about erythema has not been getting better, see continued discomfort, denying fever, chills, motor or sensory deficits. Patient was able to ambulate on on both extremity. No any other new complaints. 06/12 - pending surgical eval. continue iv abx zosyn / clinda (for mrsa). recurrent episode (last visit tx with zosyn as well, and noted rxn to vanco/linezolid) 06/13: Surgery wants to take patient for incision drainage. Continuing IV antibiotics. Patient continues to improve. 06/14, patient is postop day 1, had incision and drainage yesterday with surgery samples were taken sent to lab. Waiting for culture growth to deescalate antibiotics. Continuing on Zosyn and clinda. 06/15: Patient had packing changed yesterday by surgery. Surgery wants to follow up outpatient. Culture reviewed today showing no growth, no helpful culture data to help deescalate antibiotics. We will give culture 1 more day to see if in any definitive growth by tomorrow. If no growth we will likely have to discharge with some empiric antibiotics likely Bactrim. Right lower extremity cellulitis Right lower extremity abscess -CT of right extremity: Fluid collection in anterior medial leg measuring 2.2* 7.1 cm. Anterior leg suggestive of cellulitis. -IV antibiotic with Zosyn and vancomycin -surgical consultation for possible debridement -wound consult -pain management with Dilaudid. Prediabetic HGB A1c 5.7% -lifestyle modification, regular exercise, encouraged low-carbohydrate index diet Hypothyroidism -continue levothyroxine 125 mcg p.o. daily Morbid obesity BMI 35.6 kg/m2 -lifestyle modification, encouraged weight loss, strengthening exercise History of hypertension -stable Ruled out right lower extremity DVT -right lower extremity ultrasound ruled out DVT PUD prophylaxis with Protonix DVT prophylaxis with enoxaparin medsurg full code Plan discussed with: Patient Date of Service: Jun 15, 2025 Billing Provider: BUBBA CLIFFORD MD Common Visit Codes: [id number] INP/OBS CARE(HIGH) BUBBA CLIFFORD MD Jun 15, 2025 15:03
[2025-06-16 01:00] VITALS: BP 109/64; PULSE 60; RESP 19; TEMP 97.3; O2SAT 97
[2025-06-16 05:00] VITALS: BP 118/68; PULSE 62; RESP 19; TEMP 97.4; O2SAT 94
[2025-06-16 08:00] VITALS: PULSE 69; RESP 18; O2SAT 93
[2025-06-16 08:45] VITALS: BP 129/76; PULSE 69; RESP 18; TEMP 97.9; O2SAT 93
--- NOTE | 2025-06-16 11:11 | DVHDS2 ---
Discharge Summary Date of Admission Jun 11, 2025 at 15:35 Date of Discharge: Jun 16, 2025 Labs/Diagnostic Data: Laboratory Results Test 06/15/25 08:16 06/14/25 05:52 06/13/25 05:20 06/12/25 05:10 White Blood Count 8.8 10^3/uL (4.4-10.8) Red Blood Count 4.45 10^6/uL (4.0-5.20) Hemoglobin 13.7 g/dL (12.2-16.2) Hematocrit 40.5 % (36.0-46.0) Mean Corpuscular Volume 90.9 fL (80.0-100.0) Mean Corpuscular Hemoglobin 30.8 pg (28.0-32.0) Mean Corpuscular Hemoglobin Concent 33.8 g/dL (32.0-36.0) Red Cell Distribution Width 15.1 % (11.8-14.3) Platelet Count 172 10^3/uL (140-450) Mean Platelet Volume 8.2 fL (6.9-10.8) Neutrophils (%) (Auto) 71.1 % (37.0-80.0) Lymphocytes (%) (Auto) 17.3 % (10.0-50.0) Monocytes (%) (Auto) 9.7 % (0.0-12.0) Eosinophils (%) (Auto) 1.5 % (0.0-7.0) Basophils (%) (Auto) 0.4 % (0.0-2.0) Neutrophils # (Auto) 6.2 10 ^3/uL (1.6-8.6) Lymphocytes # (Auto) 1.5 10 ^3/uL (0.4-5.4) Monocytes # (Auto) 0.9 10 ^3/uL (0-1.3) Eosinophils # (Auto) 0.1 10 ^3/uL (0-0.8) Basophils # (Auto) 0 10 ^3/uL (0-0.2) Nucleated Red Blood Cells 0.1 % Sodium Level 141 mmol/L (136-145) Potassium Level 4.2 mmol/L (3.5-5.1) Chloride Level 106 mmol/L (98-107) Carbon Dioxide Level 28 mmol/L (20-31) Anion Gap 7 (5-15) Blood Urea Nitrogen 12 mg/dL (9-23) Creatinine 0.69 mg/dL (0.550-1.02) Glomerular Filtration Rate Calc 100 mL/min (>90) BUN/Creatinine Ratio 17.4 (10.0-20.0) Serum Glucose 88 mg/dL (74-106) Calcium Level 9.0 mg/dL (8.7-10.4) Total Bilirubin 0.8 mg/dL (0.2-1.0) Aspartate Amino Transferase (AST) 30 U/L (13-40) Alanine Aminotransferase (ALT) 28 U/L (7-40) Alkaline Phosphatase 75 U/L (46-116) Total Protein 6.6 g/dL (5.7-8.2) Albumin 3.6 g/dL (3.2-4.8) Prothrombin Time 12.7 sec (9.3-11.8) Prothrombin Time INR 1.22 (0.9-1.15) Activated Partial Thromboplast Time 27.8 SEC (24.5-34.5) Hepatitis B Surface Antigen Negative (Negative) Hepatitis C Antibody Negative (Negative) Test 06/11/25 15:48 06/11/25 12:52 Urine Color Light-yellow (Yellow) Urine Clarity Clear (Clear) Urine pH 5.5 (5.0-9.0) Urine Specific [place] 1.018 (1.001-1.035) Urine Protein Negative (Negative) Urine Ketones Negative (Negative) Urine Blood Negative /uL (Negative) Urine Nitrite Negative (Negative) Urine Bilirubin Negative (Negative) Urine Urobilinogen Normal mg/dL (Negative) Urine Leukocyte Esterase Trace /uL (Negative) Urine RBC 1 /hpf (0 - 4) Urine Microscopic WBC 16 /HPF (0-5) Urine Squamous Epithelial Cells Few /hpf (<5) Urine Bacteria None seen /hpf (None Seen) Urine Mucus Few (None Seen) Urine Glucose Normal mg/dL (Normal) Hemoglobin A1c 5.7 % A1C (<5.7) Other Laboratory Tests 06/15/25 08:16 06/14/25 05:52 Brief Hx & Hospital Course: 59-year-old female who was recently hospitalized in May 17 requiring IV antibiotic for right lower extremity cellulitis. Patient was discharged home with antibiotic linezolid oral however patient had allergic reaction therefore primary care physician prescribed clindamycin 300 mg p.o. 4 times daily. However patient continued to have right lower extremity erythema, swelling, fluctuating mass over the fountain area of like lower extremity prompted visit to emergency department visit. Patient has been concerned about erythema has not been getting better, see continued discomfort, denying fever, chills, motor or sensory deficits. Patient was able to ambulate on on both extremity. No any other new complaints. 06/12 - pending surgical eval. continue iv abx zosyn / clinda (for mrsa). recurrent episode (last visit tx with zosyn as well, and noted rxn to vanco/linezolid) 06/13: Surgery wants to take patient for incision drainage. Continuing IV antibiotics. Patient continues to improve. 06/14, patient is postop day 1, had incision and drainage yesterday with surgery samples were taken sent to lab. Waiting for culture growth to deescalate antibiotics. Continuing on Zosyn and clinda. 06/15: Patient had packing changed yesterday by surgery. Surgery wants to follow up outpatient. Culture reviewed today showing no growth, no helpful culture data to help deescalate antibiotics. We will give culture 1 more day to see if in any definitive growth by tomorrow. If no growth we will likely have to discharge with some empiric antibiotics likely Bactrim. 06/16: Patient remains stable, see my improving. No growth on cultures, we will have to continue empiric treatment, we will elect to Bactrim-DS b.i.d. 10 days. Patient will need follow up surgery as scheduled. Vital signs stable, stable for discharge as per plan below. diagnosis: Right lower extremity cellulitis Right lower extremity abscess RLE hematoma Prediabetic HGB A1c 5.7% Hypothyroidism Morbid obesity BMI 35.6 kg/m2 History of hypertension Ruled out right lower extremity DVT plan: - bactrim DS 2x/day for 10 days - spoonful whole [place] yogurt 2x/day - continue other home medications - follow up with PCP to review discharge Condition at Discharge: Fair Final Diagnosis/Problems List Right lower extremity cellulitis Right lower extremity abscess RLE hematoma Prediabetic HGB A1c 5.7% Hypothyroidism Morbid obesity BMI 35.6 kg/m2 History of hypertension Ruled out right lower extremity DVT Discharge Disposition: Home Discharge Instruct/Medications Scheduled Levothyroxine Sodium (Levothyroxine Sodium), 1 TAB PO DAILY, (Reported) Linezolid (Zyvox), 600 MG PO BID Discharge Statement: "Patient was advised to return to the ER or call 911 if any headaches, dizziness, shortness of breath, chest pain, abdominal pain, bleeding, fevers, or worsening of medical condition. Patient was counseled about treatment plan, medications, possible side effects, patientverbalized understanding. All questions were answered to the best of my ability. This discharge took greater then 30 minutes in planning, reviewing documentation, counseling the patient, and discussing with other team members." Date of Service: Jun 16, 2025 Billing Provider: BUBBA CLIFFORD MD Common Visit Codes: [id number] DISCH DAY >30min BUBBA CLIFFORD MD Jun 16, 2025 11:11
[2025-06-16] MEDS ORDERED: BACDST PO (12:05)
[2025-06-16 13:00] VITALS: BP 128/70; PULSE 67; RESP 17; TEMP 98.1; O2SAT 94
[2025-06-16 17:00] VITALS: BP 132/80; PULSE 70; RESP 17; TEMP 98.2; O2SAT 95
== END 2025-06-16 18:28 | disposition home or self-care (01) | DRG 383 ==
LOC: ER 11:23 → OVERFLOW 15:35 → WEST WING 06-12 15:49
PROVIDERS: ADMIT Student in an Organized Health Care Education/Training Program; ATTEND Student in an Organized Health Care Education/Training Program
PROC: 0Y9H0ZZ Drainage of Right Lower Leg, Open Approach (ICD-10-PCS; principal; 2025-06-13 15:04)
DX: L03.115 Cellulitis of right lower limb (principal); E03.9 Hypothyroidism, unspecified; L02.415 Cutaneous abscess of right lower limb; S80.11XA Contusion of right lower leg, initial encounter; R73.03 Prediabetes; E66.01 Morbid (severe) obesity due to excess calories; I10 Essential (primary) hypertension; Z68.35 Body mass index [BMI] 35.0-35.9, adult; Z88.1 Allergy status to other antibiotic agents; Z79.899 Other long term (current) drug therapy; X58.XXXA Exposure to other specified factors, initial encounter; Y93.89 Activity, other specified; Y92.89 Other specified places as the place of occurrence of the external cause; Y99.8 Other external cause status
CPT/HCPCS: 36415; 73700; 80048; 80053; 81001; 83036; 85025; 85610; 85730; 86803; 86850; 86900; 86901; 87040; 87070; 87075; 87205; 87340; 93971; 96365; G0378; J2405; J2543; J3490